=== PATIENT | female | born 1970 | race Caucasian/White ===

== ENCOUNTER → 2016-10-05 | Outpatient (CLI) | payer OTHER ==
[~2016-10-05] MED LIST: ASPI81TA60 PO; HYDR12.55 PO; INSUDET SC; JANU50TA8 PO; LISI40TAB PO; SIMV40TA2 PO; TRIL135C PO; VITMTA PO
[2016-10-05 10:15] LABS: CALCIUM LEVEL 9.1 MG/DL (8.5-10.1); CREATININE FOR GFR 1.29 MG/DL (0.55-1.02); GLOMERULAR FILTRATION RATE 47.4 (>58); POTASSIUM SERUM 4.7 MEQ/L (3.5-5.1)
== END | disposition home or self-care (01) ==
LOC: M LAB 09:26
PROVIDERS: ATTEND Physician Assistant Medical
DX: E11.65 Type 2 diabetes mellitus with hyperglycemia (principal); E78.5 Hyperlipidemia, unspecified; I10 Essential (primary) hypertension

== ENCOUNTER → 2017-04-27 | Outpatient (CLI) | payer OTHER ==
[~2017-04-27] MED LIST changes: -TRIL135C PO; +TRIL135C6 PO
[2017-04-27 10:42] LABS: BASO % 0.7 % (0.0-1.0); EOS # 0.4 K/mm3 (0.0-0.50); EOS % 6.6 % (0.0-3.0); LARGE UNSTAINED CELL # 0.1 K/mm3 (0.0-0.4); LARGE UNSTAINED CELL % 1.3 % (0.0-4.0); LYMPH # 1.6 K/mm3 (1.5-4.5); MEAN CORPUSCULAR HEMOGLOBIN 28.4 pg (27.0-33.0); MEAN CORPUSCULAR HGB CONC 32.6 g/dl (32.0-36.5); MEAN CORPUSCULAR VOLUME 87.1 fl (80.0-96.0); MONO # 0.2 K/mm3 (0.0-0.8); MONO % 3.4 % (0.0-5.0); NEUTROPHILS # 4.5 K/mm3 (1.8-7.7); PLATELET COUNT, AUTOMATED 314 k/mm3 (150-450); RED CELL DISTRIBUTION WIDTH 14.3 % (11.5-14.5); WHITE BLOOD COUNT 6.8 K/mm3 (4.0-10.0)
[2017-04-27 11:09] LABS: ALBUMIN 3.2 GM/DL (3.2-5.2); ALBUMIN/GLOBULIN RATIO 0.76 (1.00-1.93); ALKALINE PHOSPHATASE 52 U/L (45-117); ALT/SGPT 33 U/L (12-78); ANION GAP 9 MEQ/L (8-16); AST/SGOT 15 U/L (15-37); BILIRUBIN,TOTAL 0.3 MG/DL (0.2-1.0); BLOOD UREA NITROGEN 38 MG/DL (7-18); CALCIUM LEVEL 9.6 MG/DL (8.5-10.1); CARBON DIOXIDE LEVEL 24 MEQ/L (21-32); CHLORIDE LEVEL 102 MEQ/L (98-107); CHOLESTEROL LEVEL 245 MG/DL (<200); CREATININE FOR GFR 1.48 MG/DL (0.55-1.02); GLOMERULAR FILTRATION RATE 40.2 (>58); GLUCOSE, FASTING 312 MG/DL (70-105); SODIUM LEVEL 135 MEQ/L (136-145); TOTAL PROTEIN 7.4 GM/DL (6.4-8.2); TRIGLYCERIDES LEVEL 741 MG/DL (<150)
== END ==
LOC: M LAB 09:46
PROVIDERS: ATTEND Physician Assistant Medical
DX: E11.65 Type 2 diabetes mellitus with hyperglycemia (principal)

== ENCOUNTER → 2017-08-12 | Outpatient (CLI) | payer OTHER ==
[2017-08-12 09:52] LABS: CALCIUM LEVEL 9.2 MG/DL (8.5-10.1); CREATININE FOR GFR 1.3 MG/DL (0.55-1.02); GLOMERULAR FILTRATION RATE 46.7 (>58); POTASSIUM SERUM 4.6 MEQ/L (3.5-5.1)
== END ==
LOC: M LAB 08:54
PROVIDERS: ATTEND Physician Assistant Medical
DX: E11.65 Type 2 diabetes mellitus with hyperglycemia (principal)

== ENCOUNTER → 2017-08-16 | Outpatient (REF) | payer OTHER | LOC: M LAB REF 16:44 | PROVIDERS: ATTEND Nurse Practitioner Women's Health | DX: N39.41 Urge incontinence (principal) ==

== ENCOUNTER → 2017-09-17 | Outpatient (CLI) | payer OTHER ==
--- NOTE | 2017-09-17 10:53 | REPMRS ---
Patient History The patient states she had a clinical breast exam in 2016. Family history of breast cancer in paternal aunt at age 50 or over and ovarian cancer in maternal grandmother at age 48. Took hormonal contraceptives for 3 years. Digital Mammo Screening Bilat: September 17, 2017 - Exam #: [id number] Bilateral CC and MLO view(s) were taken. Technologist: Wanda Ryder, Technologist Prior study comparison: September 11, 2016, bilateral digital mammo screening bilat performed at [facility]. August 13, 2015, bilateral digital mammo screening bilat performed at [facility]. August 10, 2014, bilateral bilat screen digital mammo, performed at [facility] ([facility]). FINDINGS: The breast tissue is almost entirely fat. There has been no change in the appearance of the mammogram from the prior studies. There is no interval development of dominant mass, architectural distortion, or clustered microcalcification typical of malignancy. ASSESSMENT: BI-RADS/ACR category 1 mammogram. Negative. Recommendation Routine screening mammogram of both breasts in 1 year (for women over age 40). This patient's Lifetime Breast Cancer RIsk is estimated at 18.8 %. This mammogram was interpreted with the aid of an FDA-approved computer-aided dectection system. Electronically Signed By: Pedrito Molina MD 09/17/17 3193
== END ==
LOC: M RAD 08:45
PROVIDERS: ATTEND Nurse Practitioner Women's Health
DX: Z12.31 Encounter for screening mammogram for malignant neoplasm of breast (principal)

== ENCOUNTER 2018-02-10 18:19 | Emergency (ER) | payer OTHER ==
[2018-02-10] MEDS: CLINDAMYCIN 150 MG CAP PO (19:57)
== END 2018-02-10 20:00 | disposition home or self-care (01) ==
LOC: M ED 18:19
DX: L03.032 Cellulitis of left toe (principal); S90.112A Contusion of left great toe without damage to nail, initial encounter; X58.XXXA Exposure to other specified factors, initial encounter; Y92.89 Other specified places as the place of occurrence of the external cause; I10 Essential (primary) hypertension; E11.9 Type 2 diabetes mellitus without complications; E78.9 Disorder of lipoprotein metabolism, unspecified; Z79.899 Other long term (current) drug therapy; Z79.82 Long term (current) use of aspirin; Z79.4 Long term (current) use of insulin
CPT/HCPCS: 99283

== ENCOUNTER 2018-04-25 15:03 | Emergency (ER) | payer OTHER ==
[2018-04-25] MEDS: ADACEL/BOOSTRIX VACCINE (DIPHTH/PERTUSS/ACELL/TETANUS)0.5ML SYR (90715) IM (17:15)
== END 2018-04-25 17:34 | disposition home or self-care (01) ==
LOC: M ED 15:03
DX: S80.811A Abrasion, right lower leg, initial encounter (principal); L08.9 Local infection of the skin and subcutaneous tissue, unspecified; W55.03XA Scratched by cat, initial encounter; Y92.098 Other place in other non-institutional residence as the place of occurrence of the external cause; E11.9 Type 2 diabetes mellitus without complications; I10 Essential (primary) hypertension; E78.5 Hyperlipidemia, unspecified; Z79.82 Long term (current) use of aspirin; Z79.899 Other long term (current) drug therapy; Z79.4 Long term (current) use of insulin
CPT/HCPCS: 90715

== ENCOUNTER → 2018-05-03 | Outpatient (REF) | payer OTHER | LOC: M LAB REF 12:22 | DX: L03.115 Cellulitis of right lower limb (principal) ==

== ENCOUNTER → 2018-06-01 | Outpatient (CLI) | payer OTHER ==
[2018-06-01 11:08] LABS: ESTIMATED AVERAGE GLUCOSE 243 MG/DL (60-110); HEMOGLOBIN A1c 10.1 %
[2018-06-01 11:13] LABS: ANION GAP 11 MEQ/L (8-16); BLOOD UREA NITROGEN 29 MG/DL (7-18); CALCIUM LEVEL 9.2 MG/DL (8.5-10.1); CARBON DIOXIDE LEVEL 21 MEQ/L (21-32); CHLORIDE LEVEL 109 MEQ/L (98-107); CHOLESTEROL LEVEL 153 MG/DL (<200); CHOLESTEROL RISK RATIO 4.026 (<5); CREATININE FOR GFR 1.04 MG/DL (0.55-1.30); GLOMERULAR FILTRATION RATE > 60.0 (>58); GLUCOSE, FASTING 148 MG/DL (70-100); HDL CHOLESTEROL 38 MG/DL (>40); LDL CHOLESTEROL 61.2 MG/DL (<100); NON-HDL-C 115 MG/DL; POTASSIUM SERUM 4.5 MEQ/L (3.5-5.1); SODIUM LEVEL 141 MEQ/L (136-145); TRIGLYCERIDES LEVEL 269 MG/DL (<150)
[2018-06-01 11:22] LABS: CREATININE, URINE 76.7 MG/DL; MALB URINE SIEMENS 20.2 MG/L; MAU/CREAT RATIO 26.3 MCG/MG (0.0-30.0)
== END ==
LOC: M LAB 10:14
DX: E78.5 Hyperlipidemia, unspecified (principal); E11.65 Type 2 diabetes mellitus with hyperglycemia; N18.3 Chronic kidney disease, stage 3 (moderate)
CPT/HCPCS: 83036

== ENCOUNTER → 2018-09-21 | Outpatient (CLI) | payer OTHER ==
[~2018-09-21] MED LIST changes: +AUGM875T28 PO; +CLEO300C2 PO; +INSUHUMDS SC; +INVO100T PO; +OMEGA-3-ACID; +ROSU40TA3 PO
--- NOTE | 2018-09-21 10:52 | REPMRS ---
Patient History The patient states she had a clinical breast exam in 2017. Family history of breast cancer at age 50 or over in paternal aunt, ovarian cancer at age 48 in maternal grandmother. Took hormonal contraceptives for 3 years. Digital Mammo Screening Bilat: September 21, 2018 - Exam #: [id number] Bilateral CC and MLO view(s) were taken. Technologist: Wanda Ryder, Technologist Prior study comparison: September 17, 2017, bilateral digital mammo screening bilat performed at [facility]. September 11, 2016, bilateral digital mammo screening bilat performed at [facility]. August 13, 2015, bilateral digital mammo screening bilat performed at [facility]. FINDINGS: The breast tissue is almost entirely fat. There has been no change in the appearance of the mammogram from the prior studies. There is no interval development of dominant mass, architectural distortion, or clustered microcalcification typical of malignancy. Assessment: BI-RADS/ACR category 1 mammogram. Negative. Recommendation Routine screening mammogram of both breasts in 1 year (for women over age 40). This patient's Lifetime Breast Cancer RIsk is estimated at 18.5 %. This mammogram was interpreted with the aid of an FDA-approved computer-aided dectection system. Electronically Signed By: Pedrito Molina MD 09/21/18 0304
== END ==
LOC: M RAD 09:57
PROVIDERS: ATTEND Nurse Practitioner Women's Health
DX: Z12.31 Encounter for screening mammogram for malignant neoplasm of breast (principal); Z92.0 Personal history of contraception; Z80.41 Family history of malignant neoplasm of ovary

== ENCOUNTER 2019-01-13 12:58 | Emergency (ER) | payer OTHER ==
[~2019-01-13] VITALS: Ht 170.2 cm; Wt 121.6 kg
[~2019-01-13 12:58] MED LIST changes: +LISI40TA52 PO; -LISI40TAB PO
[2019-01-13 12:59] VITALS: BP 116/71
== END 2019-01-13 13:41 | disposition home or self-care (01) ==
LOC: M ED 12:58
DX: J02.9 Acute pharyngitis, unspecified (principal); I10 Essential (primary) hypertension; E11.9 Type 2 diabetes mellitus without complications; E78.00 Pure hypercholesterolemia, unspecified; Z79.899 Other long term (current) drug therapy; Z79.82 Long term (current) use of aspirin; Z79.4 Long term (current) use of insulin

== ENCOUNTER → 2019-02-06 | Outpatient (CLI) | payer OTHER ==
--- NOTE | 2019-02-07 04:22 | REP ---
Clinical: Chronic medical renal disease stage III. Technique: Real time mitchell scale ultrasound examination using curved array transducer. Findings: The kidneys are normal in reniform shape and parenchymal echo texture with increased central sinus fat and cortical thinning consistent with chronic medical renal disease. No hydronephrosis, obvious nephrolithiasis, cystic or renal mass lesion. Right kidney measures 11.5 x 6.6 x 6.0 cm. Left kidney measures 13.6 x 5.3 x 6.7 cm. Bladder is empty. Impression: Findings consistent with chronic medical renal disease. Electronically Signed by Alfredo Fisher MD 02/07/2019 04:14 A
== END ==
LOC: M RAD 10:29
PROVIDERS: ATTEND Internal Medicine Nephrology
DX: N18.3 Chronic kidney disease, stage 3 (moderate) (principal); E11.22 Type 2 diabetes mellitus with diabetic chronic kidney disease

== ENCOUNTER → 2019-03-29 | Outpatient (REF) | payer OTHER ==
[~2019-03-29] MED LIST changes: -ROSU40TA3 PO; +ROSU40TA4 PO
[2019-03-29 13:38] LABS: PERCENT SATURATION 16.2 % (13.2-45.0)
== END ==
LOC: M LAB REF 12:51
PROVIDERS: ATTEND Internal Medicine Nephrology
DX: N18.3 Chronic kidney disease, stage 3 (moderate) (principal); D63.1 Anemia in chronic kidney disease

== ENCOUNTER → 2019-06-22 | Outpatient (CLI) | payer OTHER ==
[~2019-06-22] MED LIST changes: -SIMV40TA2 PO; +SIMV40TA20 PO
[2019-06-22 11:03] LABS: ALBUMIN 3.6 GM/DL (3.2-5.2); BILIRUBIN,TOTAL 0.4 MG/DL (0.2-1.0); CALCIUM LEVEL 9.5 MG/DL (8.5-10.1); CHOLESTEROL RISK RATIO 3.487 (<5); CREATININE FOR GFR 1.29 MG/DL (0.55-1.30); GLOMERULAR FILTRATION RATE 46.8 (>58); POTASSIUM SERUM 5.3 MEQ/L (3.5-5.1); TOTAL PROTEIN 7.1 GM/DL (6.4-8.2)
[2019-06-22 13:02] LABS: HEMOGLOBIN A1c 8.4 %
== END ==
LOC: M LAB 08:31
PROVIDERS: ATTEND Physician Assistant Medical
DX: E11.69 Type 2 diabetes mellitus with other specified complication (principal)

== ENCOUNTER → 2019-09-15 | Outpatient (CLI) | payer OTHER ==
[2019-09-15 11:09] LABS: ALBUMIN 3.8 GM/DL (3.2-5.2); BILIRUBIN,TOTAL 0.4 MG/DL (0.2-1.0); CALCIUM LEVEL 9.6 MG/DL (8.5-10.1); CHOLESTEROL RISK RATIO 3.56 (<5); CREATININE FOR GFR 1.17 MG/DL (0.55-1.30); GLOMERULAR FILTRATION RATE 52.3 (>58); POTASSIUM SERUM 4.7 MEQ/L (3.5-5.1); TOTAL PROTEIN 7.4 GM/DL (6.4-8.2)
[2019-09-15 11:14] LABS: HEMOGLOBIN A1c 8.3 %
== END ==
LOC: M LAB 09:26
PROVIDERS: ATTEND Physician Assistant
DX: E11.69 Type 2 diabetes mellitus with other specified complication (principal)

== ENCOUNTER → 2019-09-22 | Outpatient (CLI) | payer OTHER ==
--- NOTE | 2019-09-22 11:38 | REPMRS ---
Patient History The patient states she has not had a clinical breast exam in over a year. Family history of breast cancer at age 50 or over in paternal aunt, ovarian cancer at age 48 in maternal grandmother. Took hormonal contraceptives for 3 years. 3D TOMOSYNTHESIS WAS PERFORMED. [facility] for [facility]%. Digital Mammo Screening Bilat: September 22, 2019 - Exam #: [id number] Bilateral CC and MLO view(s) were taken. Technologist: Wanda Ryder, Technologist Prior study comparison: September 21, 2018, bilateral digital mammo screening bilat performed at [facility]. September 17, 2017, bilateral digital mammo screening bilat performed at [facility]. FINDINGS: There are scattered fibroglandular densities. There has been no change in the appearance of the mammogram from the prior studies. There is a mild amount of residual fibroglandular tissue which is fairly symmetric. There is no interval development of dominant mass, architectural distortion, or clustered microcalcification suggestive of malignancy. Assessment: BI-RADS/ACR category 1 mammogram. Negative Mammogram. Recommendation Routine screening mammogram in 1 year (for women over age 40). This mammogram was interpreted with the aid of an FDA-approved computer-aided dectection system. Electronically Signed By: Arsenio Alvarado MD 09/22/19 [id number]
== END ==
LOC: M RAD 10:24
PROVIDERS: ATTEND Nurse Practitioner Women's Health
DX: Z12.31 Encounter for screening mammogram for malignant neoplasm of breast (principal)

== ENCOUNTER 2019-12-07 15:20 | Emergency (ER) | payer OTHER ==
[~2019-12-07] VITALS: Ht 170.2 cm; Wt 126.3 kg
[2019-12-07] MEDS ORDERED: MAGN1CAP PO (15:41)
[2019-12-07] MEDS ORDERED: NS 1,000 ML IV ONE (15:45)
[2019-12-07 16:02] LABS: VENOUS BASE EXCESS -1.2 (-2.0-2.0); VENOUS HCO3 24.2 MEQ/L (23.0-27.0); VENOUS O2 SATURATION 88.5 % (60.0-80.0); VENOUS PARTIAL PRESSURE CO2 43.5 mmHg (38.0-50.0); VENOUS PARTIAL PRESSURE O2 58.8 mmHg (30.0-50.0); VENOUS PH 7.364 UNITS (7.330-7.430); VENOUS STANDARD HCO3 23.3 MEQ/L; VENOUS TOTAL CO2 25.6 MEQ/L (24.0-28.0)
[2019-12-07 16:09] LABS: BASO % 0.4 % (0.0-1.0); EOS # 0.7 10^3/uL (0.0-0.5); EOS % 8.1 % (0.0-3.0); HEMATOCRIT 36.5 % (36.0-47.0); HEMOGLOBIN 11.5 g/dl (12.0-15.5); MEAN CORPUSCULAR HEMOGLOBIN 27.7 pg (27.0-33.0); MEAN CORPUSCULAR HGB CONC 31.5 g/dl (32.0-36.5); MONO # 0.3 10^3/uL (0.0-0.8); MONO % 3.1 % (0.0-5.0); NEUTROPHILS # 5.5 10^3/uL (1.5-8.5); NEUTROPHILS % 65.2 % (36.0-66.0); PLATELET COUNT, AUTOMATED 278 10^3/uL (150-450); RED BLOOD COUNT 4.15 10^6/uL (4.00-5.40); WHITE BLOOD COUNT 8.5 10^3/uL (4.0-10.0)
[2019-12-07 16:43] LABS: HEMOGLOBIN A1c 8.6 %
[2019-12-07 20:28] VITALS: BP 132/74
== END 2019-12-07 20:42 | disposition home or self-care (01) ==
LOC: M ED 15:20
DX: T38.3X1A Poisoning by insulin and oral hypoglycemic [antidiabetic] drugs, accidental (unintentional), initial encounter (principal); E11.9 Type 2 diabetes mellitus without complications; I10 Essential (primary) hypertension; I51.9 Heart disease, unspecified; Z79.82 Long term (current) use of aspirin; Z79.4 Long term (current) use of insulin; Z79.899 Other long term (current) drug therapy

== ENCOUNTER → 2019-12-26 | Outpatient (CLI) | payer OTHER ==
[~2019-12-26] MED LIST changes: +MAGN1CAP PO
[2019-12-26 09:55] LABS: HEMOGLOBIN A1c 8.2 %
[2019-12-26 10:05] LABS: CALCIUM LEVEL 9.3 MG/DL (8.5-10.1); CREATININE FOR GFR 1.11 MG/DL (0.55-1.30); GLOMERULAR FILTRATION RATE 55.6 (>58); POTASSIUM SERUM 4.7 MEQ/L (3.5-5.1)
[2019-12-26 10:09] LABS: MAU/CREAT RATIO 225.9 MCG/MG (0.0-30.0)
== END ==
LOC: M LAB 09:02
PROVIDERS: ATTEND Physician Assistant
DX: E11.9 Type 2 diabetes mellitus without complications (principal)

== ENCOUNTER → 2020-05-13 | Outpatient (CLI) | payer OTHER ==
[2020-07-11 16:16] LABS: BASO # 0.1 10^3/uL (0.0-0.2); BASO % 0.6 % (0.0-1.0); EOS # 0.7 10^3/uL (0.0-0.5); EOS % 8.2 % (0.0-3.0); HEMATOCRIT 33.4 % (36.0-47.0); HEMOGLOBIN 10.3 g/dl (12.0-15.5); LYMPH # 1.9 10^3/uL (1.5-5.0); LYMPH % 24.1 % (24.0-44.0); MEAN CORPUSCULAR HEMOGLOBIN 26.8 pg (27.0-33.0); MEAN CORPUSCULAR HGB CONC 30.8 g/dl (32.0-36.5); MEAN CORPUSCULAR VOLUME 86.8 fl (80.0-96.0); MONO # 0.5 10^3/uL (0.0-0.8); MONO % 6.2 % (0.0-5.0); NEUTROPHILS # 4.8 10^3/uL (1.5-8.5); NEUTROPHILS % 60.5 % (36.0-66.0); PLATELET COUNT, AUTOMATED 287 10^3/uL (150-450); RED BLOOD COUNT 3.85 10^6/uL (4.00-5.40); WHITE BLOOD COUNT 7.9 10^3/uL (4.0-10.0)
[2020-07-15 09:31] LABS: HEMOGLOBIN A1c 8.4 %
[2020-07-15 09:32] LABS: BILIRUBIN,TOTAL 0.3 MG/DL (0.2-1.0); CALCIUM LEVEL 9.2 MG/DL (8.5-10.1); CHOLESTEROL RISK RATIO 3.891 (<5); CREATININE FOR GFR 1.27 MG/DL (0.55-1.30); GLOMERULAR FILTRATION RATE 47.4 (>51); LDL CHOLESTEROL 47.2 MG/DL (<100); POTASSIUM SERUM 4.6 MEQ/L (3.5-5.1)
[2020-07-15 09:33] LABS: ALBUMIN 3.4 GM/DL (3.2-5.2); TOTAL PROTEIN 6.9 GM/DL (6.4-8.2)
== END ==
LOC: M LAB 09:10
PROVIDERS: ATTEND Family Medicine
DX: E78.5 Hyperlipidemia, unspecified (principal); E11.22 Type 2 diabetes mellitus with diabetic chronic kidney disease; N18.3 Chronic kidney disease, stage 3 (moderate)

== ENCOUNTER → 2020-10-01 | Outpatient (CLI) | payer OTHER ==
--- NOTE | 2020-10-01 09:39 | REPMRS ---
Patient History The patient states she had a clinical breast exam in 08/2020. Family history of breast cancer at age 50 or over in paternal aunt, ovarian cancer at age 48 in maternal grandmother. Took hormonal contraceptives for 3 years. 3D TOMOSYNTHESIS WAS PERFORMED. The Hubert Gillespie lifetime risk for breast cancer is 17.9%. Volpara breast density a. Digital Woman Screen Mammo: October 01, 2020 - Exam #: [id number] Bilateral CC and MLO view(s) were taken. Technologist: Miguelnia Iqbal, Technologist Prior study comparison: September 22, 2019, bilateral digital mammo screening bilat, performed at [facility]. September 21, 2018, bilateral digital mammo screening bilat, performed at [facility]. FINDINGS: There are scattered fibroglandular densities. There has been no change in the appearance of the mammogram from the prior studies. There is a mild amount of residual fibroglandular tissue which is fairly symmetric. There is no interval development of dominant mass, architectural distortion, or clustered microcalcification suggestive of malignancy. Assessment: BI-RADS/ACR category 1 mammogram. Negative Mammogram. Recommendation Routine screening mammogram in 1 year (for women over age 40). This mammogram was interpreted with the aid of an FDA-approved computer-aided dectection system. Electronically Signed By: Arsenio Alvarado MD 10/01/20 0938
== END ==
LOC: M WHC 07:54
PROVIDERS: ATTEND Obstetrics & Gynecology
DX: Z12.31 Encounter for screening mammogram for malignant neoplasm of breast (principal); Z92.0 Personal history of contraception

== ENCOUNTER → 2020-11-18 | Outpatient (CLI) | payer OTHER ==
[2020-11-18 11:40] LABS: HEMOGLOBIN A1c 8.7 %
== END ==
LOC: M LAB 10:20
PROVIDERS: ATTEND Nurse Practitioner Family
DX: E11.69 Type 2 diabetes mellitus with other specified complication (principal)

== ENCOUNTER → 2020-12-26 | Outpatient (REF) | payer OTHER ==
[2020-12-26 18:08] LABS: PERCENT SATURATION 13.7 % (13.2-45.0)
== END ==
LOC: M LAB REF 16:40
PROVIDERS: ATTEND Internal Medicine Nephrology
DX: N18.30 Chronic kidney disease, stage 3 unspecified (principal); D63.1 Anemia in chronic kidney disease

== ENCOUNTER 2021-01-14 13:35 | Outpatient (CLI) | payer OTHER ==
[~2021-01-14] VITALS: Ht 170.2 cm; Wt 124.5 kg
[~2021-01-14 13:35] MED LIST changes: +ALBUTEROL SULFATE 2.5 MG/0.5 ML INH NEB SOLN INH PRN; +EPINEPHrine INJ 1 MG/ML 1ML AMP IM PRN; +diphenhydrAMINE 50MG/ML VIAL (J1200) IV PRN; +methylPREDNISolone 125MG 2ML VIAL IV PRN
[2021-01-14 13:40] VITALS: BP 184/86
[2021-01-14] MEDS ORDERED: FERRIC CARBOXYMALTOSE INJ 750 MG, VIAL MATE ADAPTER 1 EACH in NS 250 ML IV ONE (14:15)
[2021-01-14] MEDS ORDERED: NS 1,000 ML IV SCH (14:15)
[2021-01-14 15:31] VITALS: BP 165/85
[2021-01-14 16:27] VITALS: BP 135/86
[2021-01-14 16:59] VITALS: BP 136/93
[2021-01-14 17:20] VITALS: BP 54/84
== END 2021-01-14 17:25 | disposition home or self-care (01) ==
LOC: M INFU 13:35
PROVIDERS: ATTEND Internal Medicine Nephrology
DX: D50.9 Iron deficiency anemia, unspecified (principal)
CPT/HCPCS: 96365; 96366; J1439

== ENCOUNTER 2021-01-21 13:23 | Outpatient (CLI) | payer OTHER ==
[2021-01-21 13:25] VITALS: BP 170/89
[2021-01-21] MEDS ORDERED: FERRIC CARBOXYMALTOSE INJ 750 MG, VIAL MATE ADAPTER 1 EACH in NS 250 ML IV ONE (13:30)
[2021-01-21] MEDS ORDERED: NS 1,000 ML IV SCH (13:30)
[2021-01-21 15:00] VITALS: BP 132/69
== END 2021-01-21 15:00 | disposition home or self-care (01) ==
LOC: M INFU 13:23
PROVIDERS: ATTEND Internal Medicine Nephrology
DX: D50.9 Iron deficiency anemia, unspecified (principal)
CPT/HCPCS: 96365; J1439

== ENCOUNTER → 2021-05-22 | Outpatient (CLI) | payer OTHER ==
[~2021-05-22] MED LIST changes: -ALBUTEROL SULFATE 2.5 MG/0.5 ML INH NEB SOLN INH PRN; -EPINEPHrine INJ 1 MG/ML 1ML AMP IM PRN; -diphenhydrAMINE 50MG/ML VIAL (J1200) IV PRN; -methylPREDNISolone 125MG 2ML VIAL IV PRN
[2021-05-22 15:47] LABS: HEMOGLOBIN A1c 7.2 %
== END ==
LOC: M LAB 09:55
PROVIDERS: ATTEND Nurse Practitioner Family
DX: E11.69 Type 2 diabetes mellitus with other specified complication (principal)

== ENCOUNTER → 2021-07-03 | Outpatient (REF) | payer OTHER | LOC: M LAB REF 12:53 | PROVIDERS: ATTEND Internal Medicine Nephrology | DX: E83.42 Hypomagnesemia (principal) ==

== ENCOUNTER → 2021-08-01 | Outpatient (CLI) | payer OTHER ==
[~2021-08-01] MED LIST changes: +GOOD81CH2 PO; +HYDR12CA PO; +LISI20TA33 PO; +OMEG100011 PO; +TRUL0.5I SC; +VITA1CAP4 PO
== END ==
LOC: M LABSMTC 09:48
PROVIDERS: ATTEND Anesthesiology
DX: Z01.818 Encounter for other preprocedural examination (principal); Z11.52 Encounter for screening for COVID-19

== ENCOUNTER 2021-08-06 06:53 | Day surgery (SDC) | payer OTHER ==
[~2021-08-06] VITALS: Ht 170.2 cm; Wt 132.4 kg
[~2021-08-06 06:53] MED LIST changes: +NS 1,000 ML IV ONE
--- OUTSIDE RECORDS SUMMARY | 2021-08-06 06:57 | CCD | Continuity of Care Document ---
Author Author Nishi RAMIREZ Organization Unknown Address [address], [address] [place] [address] Phone [phone] Care Team Providers Care Health Administration Teacher Name Role Phone Mary Ann Gracia N.P. AUTM [phone] Problems Active Problems Provider Date Essential hypertension LUIS Lu Onset: 06/09/2021 Social History Type Date Description Comments Sex Unknown ETOH Use 1 A Month Recreational Drug Use Denies Drug Use Tobacco Use Start: Unknown Denies Smoking Allergies, Adverse Reactions, Alerts Active Allergies Criticality Reaction | Severity Comments Date Seasonal Unable to assess criticality 06/09/2021 Medications Active Medications SIG Qnty Indications Ordering Provide r Date Levemir 100Unit/ML Solution 130 Units 2 Times A Day Unknown Rosuvastatin Calcium 40mg Tablets Take One Tablet By Mouth Every Day For Cholesterol Unknow n Humalog 100Unit/ML Solution Inject 14 Units Daily Before Meals as Directed Max Of 42 Units Daily Unknown Invokana 100mg Tablets 1 qd Unknown Janumet 50-1000mg Tablets 1 tab by mouth twice a day Unknown Lisinopril 20mg Tablets 1 qd Unknown Hydrochlorothiazide 12.5mg Capsules 1 qd Unknown Aspirin 81mg Tablets DR Parag villar day Unknown Multivitamin Tablets 1 by mouth every day Unknown Magnesium Gluconate 250mg Tablets 2 tab by mouth twice a day Unknown Vitamin D3 10mcg (400 Unit) Capsul es 1 every day Unknown Immunizations Description No Information Available Vital Signs Date Vital Result Comment 06/09/2021 11:37am BP Systolic 114 mmHg BP Diastolic 73 mmHg Heart Rate 93 /min Body Temperature 98.7 F Height 67 inches 5'7" Weight 287.25 lb BMI (Body Mass Index) 45.0 kg/m2 [place] Body Weight 135 lb Weight 130.297 kg BSA (Body Surface Area) 2.36 m2 Results Description No Information Available Procedures Date Code Description Status 06/09/2021 31708 Office/Outpatient New Low MDM 30 -44 Minutes Completed Medical Devices Description No Information Available Encounters Type Date Location Provider Dx Diagnosis Office Visit 06/09/2021 11:30a [facility] LUIS Boyer Z12.11 Encounter for screening for malignant ne oplasm of colon Assessments Date Code Description Provider 06/09/2021 Z12.11 Encounter for screening for renny gnant neoplasm of colon LUIS Lu Plan of Treatment Future Appointment(s):* 08/18/2021 9:45 am - LUIS Lu at [facility] * 08/06/2021 8:15 am - Arsenio Tesfaye DO at [facility] 06/09/2021 - LUIS Lu* Z12.11 Encounter for screening for malignant neoplasm of colon Functional Status Description No Information Available Mental Status Description No Information Available Referrals Refer to Reason for Referral Status Appt Date Arsenio Tesfaye D.O. COLONOSCOPY Scheduled 06/09/[address] [place] [id number] [phone]
--- OUTSIDE RECORDS SUMMARY | 2021-08-06 06:57 | CCD | Continuity of Care Document ---
Author Author Nishi GRACIA [employer] Organization Unknown Address [address] [place] [address] Phone [phone] Care Team Providers Care College Sports Assistant Name Role Phone [facility] - Orthopaedic Surgery AUTM [phone] Kapil CORLEY, Sujata AUTM [phone] Malik Shen D.O. AUTM [phone] [facility] Ophthalmic AUTM [phone] Problems Active Problems Provider Date Hyperlipidemia Mary Ann Gracia FNP Onset: 05/28/2021 Essential hypertension Mary Ann Gracia FNP Onset: Type 2 diabetes mellitus Mary Ann Gracia [employer] Onset: 021 Chronic kidney disease stage 3 Mary Ann Gracia [employer] Onset: 0 05/28/2021 Anemia of chronic renal failure Mary Ann Gracia [employer] Onset: 05/28/2021 Social History Type Date Description Comments Sex Unknown Tobacco Use Start: Unknown Never Used Smokeless Tobacco ETOH Use Denies alcohol use Tobacco Use Start: Unknown Patient has never smoked Recreational Drug Use Denies Drug Use Smoking Status Reviewed: 05/28/21 Patient has never smoked Exercise Type/Frequency Exercises sporadically Tattoo/Piercing Tattoo right leg Tattoo/Piercing Pierced ears Sun Exposure Minimum amount of sun exposure Sun Exposure Uses sunscreen Seat Belt/Car Seat Always uses seat belt Bike Helmet Never Does not bike ri de Guns in Home Yes, Locked Up Smoke Alarms Yes Smoke Alarms Carbon Monoxide Detector: Yes Allergies, Adverse Reactions, Alerts Active Allergies Criticality Reaction | Severity Comments Date NKDA Unable to assess criticality 02/22/2014 seasonal Unable to assess criticality 02/22/2014 Medications Active Medications SIG Qnty Indications Ordering Provide r Date B-D Insulin Syringe Ultrafine II/0.3ML/3 1G X /16" 31G X /16" 0.3 ML Misc use to inject insulin] sq [five times a day 500unPeg Zhang M.D. 10/03/2020 Olopatadine HCL 0.1% Solution 1 drop both eyes twice a day 15ml H10.13 Mary Ann Gracia FNP 05/29/2020 Trulicity 1.5mg/0.5ML Solution Pen -Inject inject 1.5mg once a week 6ml E11.65 Mary Ann Gracia FNP Fluconazole 150mg Tablets take 1 tablet by mouth once - may repeat if needed in 3 days 14tabs Mary Ann Velasquez FNP 01/26/2018 BD Insulin Syr 1ml use to inject insulin' sq 'five times a day 400unPeg Zhang M.D. 0 11/03/2017 Voltaren 1% Gel apply 2 grams up to 4 times a day as needed to right knee for pain 100gm M25.561 Mary Ann Velasquez FNP 06/03/2017 Rosuvastatin Calcium 40mg Tablets take 1 tablet by mouth every day for cholesterol 90tabs E78.5 Mary Ann Braga ch, FNP 06/03/2017 Invokana 100mg Tablets take 1 tablet by mouth before first meal every morning 90tabs Mary Ann Gracia FNP 11/25/2016 Freestyle Lite Glucometer Machine to use to test fsbs as directed 1unPeg Zhang M.D . 08/27/2015 Freestyle Lite Test Strips Strips to test fsbs 4 times daily or as directed 300unDrake Zhang M.D. 08/27/2015 Freestyle Lite Lancets Misc to test fsbs 4 times daily or as needed 120unPeg Zhang M .D. 08/27/2015 Insulin Syringe/Needle 28G X 1/2" 1 ML Misc to use to inject insulin sc five times a day 400units Peg Coleman M.D. 03/27/2014 Tramadol Hydrochloride/Acetaminophen 37.5-325mg Tablets 1-2 tab by mouth every 6 hours as needed for pain 30tabs Mary Ann Gracia [facility] 02/22/2014 Nystatin 466349Grqg/GM Powder apply to affected area twice daily as needed 120g B37.[address] [facility] 02/22/2014 Aspir-[address] 1 by mouth every day 100tabs Unknown Multivitamin Adult Tablets 1 tab po daily Unknown Humalog 100Unit/ML Solution inject 14 units daily before meals as directed 20ml Dinh Gracia [facility] Lisinopril 20mg Tablets take 1 tablet by mouth every morning for blood pressure 90tabs Mary Ann Gracia [facility] Hydrochlorothiazide 12.5mg Capsule s take 1 capsule by mouth daily 90caps Mary Ann Gracia [facility] Jzamo-7-Tieu Ethyl Esters 1gm Caps ules take 2 capsules by mouth twice a day 360caps Dinh Gracia [facility] Janumet 50-1000mg Tablets take 1 tablet by mouth twice a day 180tabs Mary Ann Gracia [facility] 00 Levemir 100Unit/ML Solution inject 130 units subcutaneously twice a day for diabetes 30ml Pl Mary Ann salinas [facility] Magnesium Oxide 500mg Tablets 2 by mouth every day Unknown History Medications Mupirocin 2% Ointment apply to open areas twice a day until healed 22gm R23.8 Kim Anne PA 01/02/2021 - 05/28/2021 Immunizations CPT Code Status Date Vaccine Lot # 11578 Given 06/28/2020 Influenza Virus Vaccine, Quadrivalent,age 3 and up,multidose vial [id number] 28695 Given 07/31/2019 Influenza Virus Vaccine, Quadrivalent,age 3 and up,multidose vial [id number] 76666 Given 06/08/2018 Influenza Virus Vaccine, Quadrivalent,age 3 and up,multidose vial [id number] 41924 Given 2018 Adacel 11 Yrs or older 97803 Given 07/29/2017 Influenza Virus Vaccine, Quadrivalent,age 3 and up,multidose vial [id number] 37861 Given 06/30/2016 Influenza Vaccination [id number] 54994 Given 07/08/2015 Influenza Vaccination [id number] 50159 Given 07/12/2014 Influenza Vaccination [id number] Vital Signs Date Vital Result Comment 05/28/2021 9:31am BP Systolic 129 mmHg BP Diastolic 87 mmHg Heart Rate 99 /min Body Temperature 97.0 F Respiratory Rate 17 /min Height 67.0 inches 5'7" Weight 282.12 lb O2 % BldC Oximetry 98 % Peak Expiratory Flow Rate 377 Estimated Peak Flow Rate [place] Body Weight 135 lb BMI (Body Mass Index) 44.2 kg/m2 11/19/2020 11:09am BP Systolic 149 mmHg BP Diastolic 107 mmHg BP Systolic Recheck 142 mmHg BP Diastolic Recheck 104 mmHg Heart Rate 108 /min Body Temperature 98.8 F Respiratory Rate 18 /min Height 67.0 inches 5'7" Weight 272.12 lb O2 % BldC Oximetry 98 % Peak Expiratory Flow Rate 379 Estimated Peak Flow Rate [place] Body Weight 135 lb BMI (Body Mass Index) 42.6 kg/m2 Results Test Acquired Date Facility Test Result H/L Range Note Hemoglobin A1c 05/22/2021 [facility] nter [phone] Hemoglobin A1c 7.2 % Normal 1 Estimated Average Glucose 160 mg/dL High 60-110 1 REFERENCE RANGES: <=5.6% NORMAL 5.7-6.4% SUGGESTS IMPAIRED GLUCOSE META BOLISM/PREDIABETIC >= 6.5% ABNORMAL Procedures Date Code Description Status 05/28/2021 42641 Preventive Medicine 40/64 Years, Est. Completed 05/28/2021 86817 Office/Outpatient Established Mo d MDM 30-39 Min Completed 05/28/2021 [id number] Diabetic Foot Exam Completed 01/02/2021 99648 Office/Outpatient Established Lo w MDM 20-29 Min Completed 12/30/2020 31524 Office/Outpatient Established Lo w MDM 20-29 Min Completed 08/2020 [id number] Mammogram Completed Medical Devices Description No Information Available Encounters Type Date Location Provider Dx Diagnosis Office Visit 05/28/2021 9:45a Main Office Mary Ann Gracia, [employer] Z00.0 0 Encntr for general adult medical exam w/o abnormal findings E11.69 Type 2 diabetes mellitus wit h other specified complication E78.5 Hyperlipidemia, unspecified I10 Essential (primary) hyperten brenda N18.30 Chronic kidney disease, stag e 3 unspecified D63.1 Anemia in chronic kidney dis ease M54.31 Sciatica, right side E66.01 Morbid (severe) obesity due to excess calories Z68.41 Body mass index [BMI] 40.0-4 4.9, adult Office Visit 01/02/2021 9:00a Main Office Kim Anne PA R23.8 Other skin changes Office Visit 12/30/2020 3:15p Main Office Kim Anne PA D50.9 Iron deficiency anemia, unspecified N18.30 Chronic kidney disease, stag e 3 unspecified Assessments Date Code Description Provider 05/28/2021 Z00.00 Encounter for genera l adult medical examination without abnormal findings Mary Ann Gracia, [facility] 05/28/2021 E11.69 Type 2 diabetes mellitus with ot her specified complication Mary Ann Gracia, [facility] 05/28/2021 E78.5 Hyperlipidemia, unspecified Ples Mary Ann delong, [facility] 05/28/2021 I10 Essential (primary) hypertension Mary Ann Gracia, [facility] 05/28/2021 N18.30 Chronic kidney disease, stage 3 unspecified Mary Ann Gracia, [facility] 05/28/2021 D63.1 Anemia in chronic kidney disease Mary Ann Gracia, [facility] 05/28/2021 M54.31 Sciatica, right side Dinh Gracia, [facility] 05/28/2021 E66.01 Morbid (severe) obesity due to e xcess calories Mary Ann Gracia, [facility] 05/28/2021 Z68.41 Body mass index [BMI] 40.0-44.9, adult Mary Ann Gracia, [employer] 01/02/2021 R23.8 Blister Rhianna Anne cia, PA 12/30/2020 D50.9 Iron deficiency anemia Kim Boone PA 12/30/2020 N18.30 Chronic kidney disease stage 3 P Kim banuelos PA Plan of Treatment Future Appointment(s):* 09/29/2021 8:45 am - Mary Ann Gracia FNP at Main Office 05/28/2021 - Mary Ann Gracia FNP* Z00.00 Encounter for general adult medical examination without abnormal findings* Comments:* Health maintenance up to date. Overall doing well. THEODORE/PHQ 9/CAGE questionnaire reviewed. Discussed healthy lifestyle choices. BMI out of range. Discussed methods of improving nutrition and increasing exercise. * E11.69 Type 2 diabetes mellitus with other specified complication* New Labs:* Hemoglobin A1c, Scheduled: 09/29/21 * Comprehensive Metabolic Profil, Scheduled: 09/29/21 * Lipid Panel, Scheduled: 09/29/21 * Microalbumin Random, Scheduled: 09/29/21 * Comments:* A1C improved significantly to 7.2, continue current medications, continue working on diet and exercise. Recheck A1C in 4 months * Follow up:* 4 months with labs * E78.5 Hyperlipidemia, unspecified* Comments:* continue statin * I10 Essential (primary) hypertension* Comments:* controlled, continue current medications * N18.30 Chronic kidney disease, stage 3 unspecified* Comments:* follows with nephrology * D63.1 Anemia in chronic kidney disease* Comments:* following with nephrology * M54.31 Sciatica, right side* New Orders:* PT Order, Scheduled: 05/28/21 * Comments:* continue tylenol and stretching, refer to PT * E66.01 Morbid (severe) obesity due to excess calories * Z68.41 Body mass index [BMI] 40.0-44.9, adult* Follow up:* . * Recommendations:* increase duration, intensity or frequency of exercise, smaller portions, healthy food choices Goals 05/28/2021 - Mary Ann Gracia FNP* E66.01 Morbid (severe) obesity due to excess calories* Focus on portion control and a balanced diet. Work to improve exercise and aim for 30 minutes of moderate intensity exercise 5 days a week. 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
--- OUTSIDE RECORDS SUMMARY | 2021-08-06 06:57 | CCD | Continuity of Care Document ---
Author Author Nishi GRACIA BENCH LAY OUT TECHNICIAN Organization Unknown Address [address] [place] [address] Phone [phone] Care Team Providers Care Celery Stripper Name Role Phone [facility] - Orth[facility]edic Surgery AUTM [phone] Kapil CORLEY, Sujata AUTM [phone] Malik Shen D.O. AUTM [phone] [facility] - [facility]mic AUTM [phone] [facility] - Surgery AUTM [phone] Problems Active Problems Provider Date Hyperlipidemia Mary Ann Gracia FNP Onset: 05/28/2021 Essential hypertension Mary Ann Gracia FNP Onset: Type 2 diabetes mellitus Mary Ann Gracia FNP Onset: 021 Chronic kidney disease stage 3 Mary Ann Gracia FNP Onset: 0 05/28/2021 Anemia of chronic renal failure Mary Ann Gracia FNP Onset: 05/28/2021 Social History Type Date Description [...] Yes Smoke Alarms Carbon Monoxide Detector: Yes Allergies and adverse reactions Active Allergies Criticality Reaction | Severity Comments Date NKDA Unable to assess criticality 02/22/2014 seasonal Unable to assess criticality 02/22/2014 Medications Active Medications SIG Qnty Indications Ordering Provide r Date B-D Insulin Syringe Ultrafine II/0.3ML/3 1G X 5/16" 31G X 5/16" 0.3 ML Misc use to inject insulin] [...] as needed for pain 30tabs Mary Ann Gracia, [facility] 02/22/2014 Nystatin 369464Gvcr/GM Powder apply to affected area twice daily as needed 120g B37.2 Zbigniew Gracia [facility] 02/22/2014 Aspir-[address] 1 by mouth every day 100tabs Unknown Multivitamin Adult Tablets 1 tab po daily Unknown Humalog 100Unit/ML Solution inject 14 units daily before meals as directed 20ml Dinh Gracia [facility] Lisinopril 20mg Tablets take 1 tablet by mouth every morning for blood pressure 90tabs Mary Ann Gracia [facility] Hydrochlorothiazide 12.5mg Capsule s take 1 capsule by mouth daily 90caps Mary Ann Gracia [facility] Wzyud-8-Mnnz Ethyl Esters 1gm Caps ules take 2 capsules by mouth twice a day 360caps Dinh Gracia [facility] Janumet 50-1000mg Tablets take 1 tablet by mouth twice a day 180tabs Mary Ann Gracia [facility] 00 Levemir 100Unit/ML Solution inject 130 units subcutaneously twice a day for diabetes 30ml Mary Ann Sheppard [facility] Magnesium Oxide 500mg Tablets 2 by mouth every day Unknown Immunizations CPT Code Status Date Vaccine Lot # 62030 Given 07/15/2021 Influenza Virus Vaccine, Nathanael drivalent,multidose vial [id number] 91008 Given 06/28/2020 Influenza Virus Vaccine, Nathanael drivalent,multidose vial [id number] 37599 Given 07/31/2019 Influenza Virus Vaccine, Nathanael drivalent,multidose vial [id number] 94625 Given 06/08/2018 Influenza Virus Vaccine, Nathanael drivalent,multidose vial [id number] 54409 Given 2018 Adacel 11 Yrs or older 87804 Given 07/29/2017 Influenza Virus Vaccine, Nathanael drivalent,multidose vial [id number] 52874 Given 06/30/2016 Influenza Vaccination [id number] 60554 Given 07/08/2015 Influenza Vaccination [id number] 19785 Given 07/12/2014 Influenza Vaccination [id number] Vital Signs Date Vital Result Comment 07/15/2021 8:23am Body Temperature 97.1 F Height 67.0 inches 5'7" Peak Expiratory Flow Rate 377 Estimated Peak Flow Rate [place] Body Weight 135 lb 05/28/2021 9:31am BP Systolic 129 mmHg BP Diastolic 87 mmHg Heart Rate 99 /min Body Temperature 97.0 F Respiratory Rate 17 /min Height 67.0 inches 5'7" Weight 282.12 lb O2 % BldC Oximetry 98 % Peak Expiratory Flow Rate 377 Estimated Peak Flow Rate [place] Body Weight 135 lb BMI (Body Mass Index) 44.2 kg/m2 Results Test Acquired Date Facility Test Result H/L Range Note Hemoglobin A1c 05/22/2021 [facility] nter [phone] Hemoglobin A1c 7.2 % Normal 1 Estimated Average Glucose 160 mg/dL High 60-110 1 REFERENCE RANGES: <=5.6% NORMAL 5.7-6.4% SUGGESTS IMPAIRED GLUCOSE META BOLISM/PREDIABETIC >= 6.5% ABNORMAL Procedures Date Code Description Status 05/28/2021 67003 Preventive Medicine 40/64 Years, Est. Completed 05/28/2021 69043 Office/Outpatient Established Mo d MDM 30-39 Min Completed 05/28/2021 [id number] Diabetic Foot Exam Completed 08/2020 [id number] Mammogram Completed Medical Devices Description No Information Available Encounters Type Date Location Provider Dx Diagnosis Office Visit 05/28/2021 9:45a Main Office Mary Ann Gracia FNP Z00.0 0 Encntr for general adult medical [...] Body mass index [BMI] 40.0-4 4.9, adult Assessments Date Code Description Provider 05/28/2021 Z00.00 Encounter for sam pavon adult medical examination without abnormal findings Mary Ann Gracia [facility] 05/28/2021 E11.69 Type 2 diabetes mellitus with ot her specified complication Mary Ann Gracia [facility] 05/28/2021 E78.5 Hyperlipidemia, unspecified Ples Mary Ann delong [facility] 05/28/2021 I10 Essential (primary) hypertension Mary Ann Gracia [facility] 05/28/2021 N18.30 Chronic kidney disease, stage 3 unspecified Mary Ann Gracia [facility] 05/28/2021 D63.1 Anemia in chronic kidney disease Mary Ann Gracia [facility] 05/28/2021 M54.31 Sciatica, right side Dinh Gracia, [facility] 05/28/2021 E66.01 Morbid (severe) obesity due to e xcess calories Mary Ann Gracia [facility] 05/28/2021 Z68.41 Body mass index [BMI] 40.0-44.9, adult Mary Ann Gracia FNP Plan of Treatment Future Appointment(s):* 09/29/2021 8:45 am - Mary Ann Gracia FNP at Main Office Functional Status Functional Condition Comment Date Status Glasses readers Active Independent with all ADL's Activ e Independent with all IADL's Acti ve Mental Status Mental Condition Comment Date Status None Active Referrals Refer to Reason for Referral Status Appt Date [facility] Patient is due for 1st screening colonoscopy. Thank you. Closed 06/09/[address] [place] [address], [address] [place] [address] [phone]
--- OUTSIDE RECORDS SUMMARY | 2021-08-06 06:57 | CCD | Continuity of Care Document ---
Author Author Nishi GRACIA BOX TOE CEMENTER Organization Unknown Address [address] [place] [address] Phone [phone] Care Team Providers Care Tractor Mechanic Helper Name Role Phone [facility] - Orthopaedic Surgery AUTM [phone] Kapil CORLEY, Sujata AUTM [phone] Malik Shen D.O. AUTM [phone] [facility] - [facility]mic AUTM [phone] [facility] - Surgery AUTM [phone] Problems Active Problems Provider Date Hyperlipidemia Mary [...] needed for pain 30tabs Mary Ann Gracia, [facility] 02/22/2014 Nystatin 604454Trzz/GM Powder apply to affected area twice daily as needed 120g B37.2 Zbigniew Gracia [facility] 02/22/2014 Aspir-[address] 1 by mouth every day 100tabs Unknown Multivitamin Adult Tablets 1 tab po daily Unknown Humalog 100Unit/ML Solution inject 14 units daily before meals as directed 20ml Dinh Gracia [facility] Lisinopril 20mg Tablets take 1 tablet by mouth every morning for blood pressure 90tabs Mary Ann Gracia [facility] Hydrochlorothiazide 12.5mg Capsule s take 1 capsule by mouth daily 90caps Mary Ann Gracia [facility] Dhkfp-7-Yped Ethyl Esters 1gm Caps ules take 2 capsules by mouth twice a day 360caps Dinh Gracia [facility] Janumet 50-1000mg Tablets take 1 tablet by mouth twice a day 180tabs Mary Ann Gracia [facility] 00 Levemir 100Unit/ML Solution inject 130 units subcutaneously twice a day for diabetes 30ml Mary Ann Sheppard [facility] Magnesium Oxide 500mg Tablets 2 by mouth every day Unknown Immunizations CPT Code Status Date Vaccine Lot # 87234 Given 07/15/2021 Influenza Virus Vaccine, Nathanael drivalent,multidose vial [id number] 55319 Given 06/28/2020 Influenza Virus Vaccine, Nathanael drivalent,multidose vial [id number] 03391 Given 07/31/2019 Influenza Virus Vaccine, Nathanael drivalent,multidose vial [id number] 96969 Given 06/08/2018 Influenza Virus Vaccine, Nathanael drivalent,multidose vial [id number] 93226 Given 2018 Adacel 11 Yrs or older 84881 Given 07/29/2017 Influenza Virus Vaccine, Nathanael drivalent,multidose vial [id number] 37713 Given 06/30/2016 Influenza Vaccination [id number] 81078 Given 07/08/2015 Influenza Vaccination [id number] 50995 Given 07/12/2014 Influenza Vaccination [id number] Vital Signs Date Vital Result Comment 07/15/2021 8:23am Body Temperature 97.1 F Height 67.0 inches 5'7" Peak Expiratory Flow Rate 377 Estimated Peak Flow Rate [place] Body Weight 135 lb 05/28/2021 9:31am BP Systolic 129 mmHg BP Diastolic 87 mmHg Heart Rate 99 /min Body Temperature 97.0 F Respiratory Rate 17 /min Height 67.0 inches 5'7" Weight 282.12 lb O2 % BldC Oximetry 98 % Peak Expiratory Flow Rate 377 Estimated Peak Flow Rate [place] Body Weight 135 lb BMI (Body Mass Index) 44.2 kg/m2 Results Test Acquired Date Facility Test Result H/L Range Note Hemoglobin A1c 05/22/2021 [facility] nter [phone] Hemoglobin A1c 7.2 % Normal 1 Estimated Average Glucose 160 mg/dL High 60-110 1 REFERENCE RANGES: <=5.6% NORMAL 5.7-6.4% SUGGESTS IMPAIRED GLUCOSE META BOLISM/PREDIABETIC >= 6.5% ABNORMAL Procedures Date Code Description Status 05/28/2021 62717 Preventive Medicine 40/64 Years, Est. Completed 05/28/2021 99777 Office/Outpatient Established Mo d MDM 30-39 Min Completed 05/28/2021 [id number] Diabetic Foot Exam Completed 08/2020 [id number] Mammogram Completed Medical Devices Description No Information [...] 4.9, adult Assessments Date Code Description Provider 07/15/2021 Z23 Encounter for immunization Mary Ann Stanley FNP 05/28/2021 Z00.00 Encounter for genera l adult medical examination without abnormal findings Mary Ann Gracia [facility] 05/28/2021 E11.69 Type 2 diabetes mellitus with ot her specified complication Mary Ann Gracia [facility] 05/28/2021 E78.5 Hyperlipidemia, unspecified Ples Mary Ann delong [facility] 05/28/2021 I10 Essential (primary) hypertension Mary Ann Gracia [facility] 05/28/2021 N18.30 Chronic kidney disease, stage 3 unspecified Mary Ann Gracia [facility] 05/28/2021 D63.1 Anemia in chronic kidney disease Mary Ann Gracia [facility] 05/28/2021 M54.31 Sciatica, right side Dinh Gracia [facility] 05/28/2021 E66.01 Morbid (severe) obesity due to e xcess calories Mary Ann Gracia [facility] 05/28/2021 Z68.41 Body mass index [BMI] [...] to Reason for Referral Status Appt Date [facility] Patient is due for 1st screening colonoscopy. Thank you. Closed 06/09/[address] [place] [address], [address] [place] [address] [phone]
--- OUTSIDE RECORDS SUMMARY | 2021-08-06 06:58 | CCD | Continuity of Care Document ---
Author Author Nishi GRACIA INSEAMER Organization Unknown Address [address] [place] [address] Phone [phone] Care Team Providers Care Roller Shop Utility Worker Name Role Phone [facility] - Orthopaedic Surgery AUTM [phone] Kapil CORLEY, Sujata AUTM [phone] Malik Shen D.O. AUTM [phone] [facility] AUTM [phone] Problems Active Problems Provider Date Hyperlipidemia Mary Ann Gracia FNP Onset: 05/28/2021 Essential hypertension Mary Ann Gracia FNP Onset: Type 2 diabetes mellitus Mary Ann Gracia [facility] Onset: 021 Chronic kidney disease stage 3 Mary Ann Gracia [facility] Onset: 0 05/28/2021 Anemia of chronic renal failure Mary Ann Gracia [facility] Onset: 05/28/2021 Social History Type Date Description [...] needed for pain 30tabs Mary Ann Gracia [facility] 02/22/2014 Nystatin 355580Ircz/GM Powder apply to affected area twice daily as needed 120g B37.2 Zbigniew Gracia [facility] 02/22/2014 Aspir-[address] 1 by mouth every day 100tabs Unknown Multivitamin Adult Tablets 1 tab po daily Unknown Humalog 100Unit/ML Solution inject 14 units daily before meals as directed 20ml Dinh Gracia [facility] Lisinopril 20mg Tablets take 1 tablet by mouth every morning for blood pressure 90tabs Mary Ann Gracia [facility] Hydrochlorothiazide 12.5mg Capsule s take 1 capsule by mouth daily 90caps Mary Ann Gracia [facility] Zjagv-1-Ewrx Ethyl Esters 1gm Caps ules take 2 capsules by mouth twice a day 360caps Dinh Gracia [facility] Janumet 50-1000mg Tablets take 1 tablet by mouth twice a day 180tabs Mary Ann Gracia [facility] 00 Levemir 100Unit/ML Solution inject 130 units subcutaneously twice a day for diabetes 30ml Pl Mary Ann salinas [facility] Magnesium Oxide 500mg Tablets 2 by mouth every day Unknown History Medications Mupirocin 2% Ointment apply to open areas twice a day until healed 22gm R23.8 Kim Anne PA 01/02/2021 - 05/28/2021 Immunizations CPT Code Status Date Vaccine Lot # [id number] Given 06/28/2020 Influenza Virus Vaccine, Quadrivalent,age 3 and up,multidose vial [id number] 87440 Given 07/31/2019 Influenza Virus Vaccine, Quadrivalent,age 3 and up,multidose vial [id number] 42159 Given 06/08/2018 Influenza Virus Vaccine, Quadrivalent,age 3 and up,multidose vial [id number] 93838 Given 2018 Adacel 11 Yrs or older 45558 Given 07/29/2017 Influenza Virus Vaccine, Quadrivalent,age 3 and up,multidose vial [id number] 17422 Given 06/30/2016 Influenza Vaccination [id number] 58467 Given 07/08/2015 Influenza Vaccination [id number] 52258 Given 07/12/2014 Influenza Vaccination [id number] Vital Signs Date Vital Result Comment 05/28/2021 9:31am BP Systolic 129 mmHg BP Diastolic 87 mmHg Heart Rate 99 /min Body Temperature 97.0 F Respiratory Rate 17 /min Height 67.0 inches 5'7" Weight 282.12 lb O2 % BldC Oximetry 98 % Peak Expiratory Flow Rate 377 Estimated Peak Flow Rate [place] Body Weight 135 lb BMI (Body Mass [...] Flow Rate 379 Estimated Peak Flow Rate [place] Body Weight 135 lb BMI (Body Mass Index) 42.6 kg/m2 Results Test Acquired Date Facility Test Result H/L Range Note Hemoglobin A1c 05/22/2021 [facility] nter [phone] Hemoglobin A1c 7.2 % Normal 1 Estimated Average Glucose 160 mg/dL High 60-110 1 REFERENCE RANGES: <=5.6% NORMAL 5.7-6.4% SUGGESTS IMPAIRED GLUCOSE META BOLISM/PREDIABETIC >= 6.5% ABNORMAL Procedures Date Code Description Status 05/28/2021 00019 Preventive Medicine 40/64 Years, Est. Completed 05/28/2021 28597 Office/Outpatient Established Mo d MDM 30-39 Min Completed 05/28/2021 [id number] Diabetic Foot Exam Completed 01/02/2021 63484 Office/Outpatient Established Lo w MDM 20-29 Min Completed 12/30/2020 17621 Office/Outpatient Established Lo w MDM 20-29 Min Completed 08/2020 [id number] Mammogram Completed Medical Devices Description No Information Available Encounters Type Date Location Provider Dx Diagnosis Office Visit 05/28/2021 9:45a Main Office Mary Ann Gracia, [facility] Z00.0 0 Encntr for general adult medical [...] examination without abnormal findings Mary Ann Gracia, [facility] 05/28/2021 E11.69 Type 2 diabetes mellitus with ot her specified complication Mary Ann Gracia, [facility] 05/28/2021 E78.5 Hyperlipidemia, unspecified Ples Mary Ann delong, [facility] 05/28/2021 I10 Essential (primary) hypertension Mary Ann Gracia, [facility] 05/28/2021 N18.30 Chronic kidney disease, stage 3 unspecified Mary Ann Gracia, [facility] 05/28/2021 D63.1 Anemia in chronic kidney disease Mary Ann Gracia, [facility] 05/28/2021 M54.31 Sciatica, right side Dinh Gracia, [facility] 05/28/2021 E66.01 Morbid (severe) obesity due to e xcess calories Mary Ann Gracia, [facility] 05/28/2021 Z68.41 Body mass index [BMI] 40.0-44.9, adult Mary Ann Gracia, [facility] 01/02/2021 R23.8 Blister Rhianna Anne cia, PA 12/30/2020 D50.9 Iron deficiency anemia Kim Boone PA 12/30/2020 N18.30 Chronic kidney disease stage 3 P Kim banuelos PA Plan of Treatment 05/28/2021 - Mary Ann Gracia FNP* Z00.00 [...] on diet and exercise. Recheck A1C in 3 months * Follow up:* 4 months with labs * E78.5 Hyperlipidemia, unspecified* Comments:* continue statin * I10 Essential (primary) hypertension* Comments:* controlled, continue current medications * N18.30 Chronic kidney disease, stage 3 unspecified* Comments:* follows with nephrology * D63.1 Anemia in chronic kidney disease* Comments:* following with nephrology * M54.31 Sciatica, right side* New Orders:* PT Order, Scheduled: 05/28/21 * E66.01 Morbid (severe) obesity due to [...]
--- OUTSIDE RECORDS SUMMARY | 2021-08-06 06:58 | CCD | Continuity of Care Document ---
Author Author Nishi GRACIA ENGINE HEAD REPAIRER Organization Unknown Address [address] [place] [address] Phone [phone] Care Team Providers Care Mine Safety Manager Name Role Phone [facility] - Orthopaedic Surgery AUTM [phone] Kapil CORLEY, Sujata AUTM [phone] Malik Shen D.O. AUTM [phone] [facility] AUTM [phone] Problems Description No Information Available Social History Type Date Description Comments Sex Unknown Tobacco Use Start: Unknown Never Used Smokeless Tobacco ETOH Use Denies alcohol use Tobacco Use Start: Unknown Patient has never smoked Recreational Drug Use Denies Drug Use Smoking Status Reviewed: 11/19/20 Patient has never smoked Exercise Type/Frequency Exercises [...] SIG Qnty Indications Ordering Provide r Date Mupirocin 2% Ointment apply to open areas twice a day until healed 22gm R23.8 Kim Anne PA 01/02/2021 B-D Insulin Syringe Ultrafine II/0.3ML/3 1G X 5/16" 31G X 5/16" 0.3 ML Misc use to inject insulin] sq [five times a day 500unPeg Zhang M.D. 10/03/2020 Olopatadine HCL 0.1% Solution 1 drop both eyes twice a day 15ml H10.13 MaryA nn Gracia FNP 05/29/2020 Trulicity 1.5mg/0.5ML Solution Pen [...] inject insulin sc five times a day 400unPeg Zhang M.D. 03/27/2014 Tramadol Hydrochloride/Acetaminophen 37.5-325mg Tablets 1-2 tab by mouth every 6 hours as needed for pain 30tabs Mary Ann Gracia FNP 02/22/2014 Nystatin 000730Aejq/GM Powder apply to affected area twice daily as needed 120g B37.2 Zbigniew Gracia, [facility] 02/22/2014 Aspir-[address] 1 by mouth every day 100tabs Unknown Multivitamin Adult Tablets 1 tab po daily Unknown Humalog 100Unit/ML Solution inject 14 units daily before meals as directed 20ml Dinh Gracia [facility] Lisinopril 20mg Tablets take 1 tablet by mouth every morning for blood pressure 90tabs Mary Ann Gracia [facility] Hydrochlorothiazide 12.5mg Capsule s take 1 capsule by mouth daily 90caps Mary Ann Gracia [facility] Heccm-1-Bnlf Ethyl Esters 1gm Caps ules take 2 capsules by mouth twice a day 360caps Dinh Gracia, [facility] Janumet 50-1000mg Tablets take 1 tablet by mouth twice a day 180tabs Mary Ann Gracia [facility] 00 Levemir 100Unit/ML Solution inject 92 units subcutaneously twice a day for diabetes 30ml Pl Mary Ann [place], [facility] Magnesium Oxide 500mg Tablets 2 by mouth every day Unknown Immunizations CPT Code Status Date Vaccine Lot # 52753 Given 06/28/2020 Influenza Virus Vaccine, Quadrivalent,age 3 and up,multidose vial [id number] 45993 Given 07/31/2019 Influenza Virus Vaccine, Quadrivalent,age 3 and up,multidose vial [id number] 22583 Given 06/08/2018 Influenza Virus Vaccine, Quadrivalent,age 3 and up,multidose vial [id number] 51337 Given 2018 Adacel 11 Yrs or older 86925 Given 07/29/2017 Influenza Virus Vaccine, Quadrivalent,age 3 and up,multidose vial [id number] 30461 Given 06/30/2016 Influenza Vaccination [id number] 72396 Given 07/08/2015 Influenza Vaccination [id number] 53461 Given 07/12/2014 Influenza Vaccination [id number] Vital Signs Date Vital Result Comment 11/19/2020 11:09am BP Systolic 149 mmHg BP Diastolic 107 mmHg BP Systolic Recheck 142 mmHg BP Diastolic Recheck 104 mmHg Heart Rate 108 /min Body Temperature 98.8 F Respiratory Rate 18 /min Height 67.0 inches 5'7" Weight 272.12 lb O2 % BldC Oximetry 98 % Peak Expiratory Flow Rate 379 Estimated Peak Flow Rate [place] Body Weight 135 lb BMI (Body Mass Index) 42.6 kg/m2 06/28/2020 10:19am Body Temperature 97.1 F Height 67.0 inches 5'7" Peak Expiratory Flow Rate 379 Estimated Peak Flow Rate [place] Body Weight 135 lb Results Test Acquired Date Facility Test Result H/L Range Note Hemoglobin A1c 05/22/2021 [facility] nter [phone] Hemoglobin A1c 7.2 % Normal 1 Estimated Average Glucose 160 mg/dL High 60-110 1 REFERENCE RANGES: <=5.6% NORMAL 5.7-6.4% SUGGESTS IMPAIRED GLUCOSE META BOLISM/PREDIABETIC >= 6.5% ABNORMAL Procedures Date Code Description Status 01/02/2021 63038 Office/Outpatient Established Lo w MDM 20-29 Min Completed 12/30/2020 69208 Office/Outpatient Established Lo w MDM 20-29 Min Completed 08/2020 [id number] Mammogram Completed 05/13/2020 [id number] Diabetic Foot Exam Completed Medical Devices Description No Information Available Encounters Type Date Location Provider Dx Diagnosis Office Visit 01/02/2021 9:00a Main Office Kim Anne PA R23.8 Other skin changes Office Visit 12/30/2020 3:15p Main Office Kim Anne PA D50.9 Iron deficiency anemia, unspecified N18.30 Chronic kidney disease, stag e 3 unspecified Assessments Date Code Description Provider 01/02/2021 R23.8 Blister Rhianna Anne cia, PA 12/30/2020 D50.9 Iron deficiency anemia Kim Boone PA 12/30/2020 N18.30 Chronic kidney disease stage 3 P Kim banuelos PA Plan of Treatment Future Appointment(s):* 05/28/2021 9:45 am - Mary Ann Gracia FNP at Main Office 01/02/2021 - Kim Anne PA* R23.8 Blister* New Medication:* Mupirocin 2 % - apply to open areas twice a day until healed * Comments:* keep area clean, dryseperate toes with gauze paduse bactrobanmonitor for signs of infectioncheck feet daily Functional Status Functional Condition Comment Date Status Glasses readers Active Independent with all ADL's Activ e Independent with all IADL's Acti ve Mental Status Mental Condition Comment Date Status None Active Referrals Description No Information Available
--- OUTSIDE RECORDS SUMMARY | 2021-08-06 06:58 | CCD ---
Author Author [facility] Organization [facility] Address Unknown Phone Unavailable Care Team Providers [facility] [employer] Name Role Phone Petrsagrario, Peach Kim PA-C Unavailable Unavailabl e Petrancosta, Peach Kim PA-C Unavailable Unavailabl e Petrancosta, Peach Kim PA-C Unavailable Unavailabl e Petrancosta, Peach Kim PA-C Unavailable Unavailabl e Petrancosta, Peach Kim PA-C Unavailable Unavailabl e Petrancosta, Peach Kim PA-C Unavailable Unavailabl e Petrancosta, Peach Kim PA-C Unavailable Unavailabl e Petrancosta, Peach Kim PA-C Unavailable Unavailabl e Petrancosta, Peach Kim PA-C Unavailable Unavailabl e Petrancosta, Peach Kim PA-C Unavailable Unavailabl e Petrancosta, Peach Kim PA-C Unavailable Unavailabl e Petrancosta, Peach Kim PA-C Unavailable Unavailabl e Petrancosta, Peach Kim PA-C Unavailable Unavailabl e Petrancosta, Peach Kim PA-C Unavailable Unavailabl e Petrancosta, Peach Kim PA-C Unavailable Unavailabl e Petrancosta, Peach Kim PA-C Unavailable Unavailabl e Petrancosta, Peach Kim PA-C Unavailable Unavailabl e Petrancosta, Peach Kim PA-C Unavailable Unavailabl e Petrancosta, Peach Kim PA-C Unavailable Unavailabl e Petrancosta, Peach Kim PA-C Unavailable Unavailabl e Petrancosta, Peach Kim PA-C Unavailable Unavailabl e Petrancosta, Peach Kim PA-C Unavailable Unavailabl e Petrancosta, Peach Kim PA-C Unavailable Unavailabl e Petrancosta, Peach Kim PA-C Unavailable Unavailabl e Petrancosta, Peach Kim PA-C Unavailable Unavailabl e LINDO, L TYLER WALLS Unavailable Unavailable LINDO, L TYLER WALLS Unavailable Unavailable LINDO, L TYLER WALLS Unavailable Unavailable LINDO, L TYLER WALLS Unavailable Unavailable LINDO, L TYLER WALLS Unavailable Unavailable LINDO, L TYLER WALLS Unavailable Unavailable LINDO, L TYLER WALLS Unavailable Unavailable LINDO, L TYLER WALLS Unavailable Unavailable LINDO, L TYLER WALLS Unavailable Unavailable LINDO, L TYLER WALLS Unavailable Unavailable LINDO, L TYLER WALLS Unavailable Unavailable LINDO, L TYLER WALLS Unavailable Unavailable LINDO, L TYLER WALLS Unavailable Unavailable LINDO, L TYLER WALLS Unavailable Unavailable LINDO, L TYLER WALLS Unavailable Unavailable LINDO, L TYLER WALLS Unavailable Unavailable LINDO, L TYLER WALLS Unavailable Unavailable LINDO, L TYLER WALLS Unavailable Unavailable LINDO, L TYLER WALLS Unavailable Unavailable LINDO, L TYLER WALLS Unavailable Unavailable LINDO, L TYLER WALLS Unavailable Unavailable LINDO, L TYLER WALLS Unavailable Unavailable LINDO, L TYLER WALLS Unavailable Unavailable LINDO, L TYLER WALLS Unavailable Unavailable LINDO, L TYLER WALLS Unavailable Unavailable LINDO, L TYLER WALLS Unavailable Unavailable LINDO, L TYLER WALLS Unavailable Unavailable LINDO, L TYLER WALLS Unavailable Unavailable LINDO, L TYLER WALLS Unavailable Unavailable LINDO, L TYLER WALLS Unavailable Unavailable LINDO, L TYLER WALLS Unavailable Unavailable LINDO, L TYLER WALLS Unavailable Unavailable LINDO, L TYLER WALLS Unavailable Unavailable LINDO, L TYLER WALLS Unavailable Unavailable LINDO, L TYLER WALLS Unavailable Unavailable LINDO, L TYLER WALLS Unavailable Unavailable LINDO, L TYLER WALLS Unavailable Unavailable LINDO, L TYLER WALLS Unavailable Unavailable LINDO, L TYLER WALLS Unavailable Unavailable LINDO, L TYLER WALLS Unavailable Unavailable LINDO, L TYLER WALLS Unavailable Unavailable LINDO, L TYLER WALLS Unavailable Unavailable LINDO, L TYLER WALLS Unavailable Unavailable LINDO, L TYLER MD Unavailable Unavailable Ovi LINDO MD Unavailable Unavailable Pleskach, Mary Ann RN PRIOR AUTHORIZATION Unavailable Unavailable Pleskach, Mary Ann RN PRIOR AUTHORIZATION Unavailable Unavailable Pleskach, Mary Ann RN PRIOR AUTHORIZATION Unavailable Unavailable Pleskach, Mary Ann RN PRIOR AUTHORIZATION Unavailable Unavailable Pleskach, Mary Ann RN PRIOR AUTHORIZATION Unavailable Unavailable Pleskach, Mary Ann RN PRIOR AUTHORIZATION Unavailable Unavailable Pleskach, Mary Ann RN PRIOR AUTHORIZATION Unavailable Unavailable Pleskach, Mary Ann RN PRIOR AUTHORIZATION Unavailable Unavailable Pleskach, Mary Ann RN PRIOR AUTHORIZATION Unavailable Unavailable Pleskach, Mary Ann RN PRIOR AUTHORIZATION Unavailable Unavailable Pleskach, Mary Ann RN PRIOR AUTHORIZATION Unavailable Unavailable Pleskach, Mary Ann RN PRIOR AUTHORIZATION Unavailable Unavailable Pleskach, Mary Ann RN PRIOR AUTHORIZATION Unavailable Unavailable Pleskach, Mary Ann RN PRIOR AUTHORIZATION Unavailable Unavailable Pleskach, Mary Ann RN PRIOR AUTHORIZATION Unavailable Unavailable Pleskach, Mary Ann RN PRIOR AUTHORIZATION Unavailable Unavailable Pleskach, Mary Ann RN PRIOR AUTHORIZATION Unavailable Unavailable Pleskach, Mary Ann RN PRIOR AUTHORIZATION Unavailable Unavailable Pleskach, Mary Ann RN PRIOR AUTHORIZATION Unavailable Unavailable Pleskach, Mary Ann RN PRIOR AUTHORIZATION Unavailable Unavailable Pleskach, Mary Ann RN PRIOR AUTHORIZATION Unavailable Unavailable Pleskach, Mary Ann RN PRIOR AUTHORIZATION Unavailable Unavailable Pleskach, Mary Ann RN PRIOR AUTHORIZATION Unavailable Unavailable Pleskach, Mary Ann RN PRIOR AUTHORIZATION Unavailable Unavailable Pleskach, Mary Ann RN PRIOR AUTHORIZATION Unavailable Unavailable Pleskach, Mary Ann RN PRIOR AUTHORIZATION Unavailable Unavailable Pleskach, Mary Ann RN PRIOR AUTHORIZATION Unavailable Unavailable Pleskach, Mary Ann RN PRIOR AUTHORIZATION Unavailable Unavailable Pleskach, Mary Ann RN PRIOR AUTHORIZATION Unavailable Unavailable Pleskach, Mary Ann RN PRIOR AUTHORIZATION Unavailable Unavailable Pleskach, Mary Ann RN PRIOR AUTHORIZATION Unavailable Unavailable Pleskach, Mary Ann RN PRIOR AUTHORIZATION Unavailable Unavailable Pleskach, Mary Ann RN PRIOR AUTHORIZATION Unavailable Unavailable Pleskach, Mary Ann RN PRIOR AUTHORIZATION Unavailable Unavailable Pleskach, Mary Ann RN PRIOR AUTHORIZATION Unavailable Unavailable Pleskach, Mary Ann RN PRIOR AUTHORIZATION Unavailable Unavailable Pleskach, Mary Ann RN PRIOR AUTHORIZATION Unavailable Unavailable Pleskach, Mary Ann RN PRIOR AUTHORIZATION Unavailable Unavailable Pleskach, Mary Ann RN PRIOR AUTHORIZATION Unavailable Unavailable Pleskach, Mary Ann RN PRIOR AUTHORIZATION Unavailable Unavailable Pleskach, Mary Ann RN PRIOR AUTHORIZATION Unavailable Unavailable Pleskach, Mary Ann RN PRIOR AUTHORIZATION Unavailable Unavailable Pleskach, Mary Ann RN PRIOR AUTHORIZATION Unavailable Unavailable Pleskach, Mary Ann RN PRIOR AUTHORIZATION Unavailable Unavailable Crawford, L Lolita RPA Unavailable Unavailable Crawford, L Lolita RPA Unavailable Unavailable Crawford, L Lolita RPA Unavailable Unavailable Crawford, L Lolita RPA Unavailable Unavailable Crawford, L Lolita RPA Unavailable Unavailable Crawford, L Lolita RPA Unavailable Unavailable Crawford, L Lolita RPA Unavailable Unavailable Crawford, L Lolita RPA Unavailable Unavailable Crawford, L Lolita RPA Unavailable Unavailable Crawford, L Lolita RPA Unavailable Unavailable Crawford, L Lolita RPA Unavailable Unavailable Crawford, L Lolita RPA Unavailable Unavailable Crawford, L Lolita RPA Unavailable Unavailable Crawford, L Lolita RPA Unavailable Unavailable Crawford, L Lolita RPA Unavailable Unavailable Crawford, L Lolita RPA Unavailable Unavailable Crawford, L Lolita RPA Unavailable Unavailable Crawford, L Lolita RPA Unavailable Unavailable Crawford, L Lolita RPA Unavailable Unavailable Crawford, L Lolita RPA Unavailable Unavailable Crawford, L Lolita RPA Unavailable Unavailable Crawford, L Lolita RPA Unavailable Unavailable Crawford, L Lolita RPA Unavailable Unavailable Crawford, L Lolita RPA Unavailable Unavailable Crawford, L Lolita RPA Unavailable Unavailable Crawford, L Lolita RPA Unavailable Unavailable Crawford, L Lolita RPA Unavailable Unavailable Crawford, L Lolita RPA Unavailable Unavailable Crawford, L Lolita RPA Unavailable Unavailable Crawford, L Lolita RPA Unavailable Unavailable Crawford, L Lolita RPA Unavailable Unavailable Crawford, L Lolita RPA Unavailable Unavailable Re-disclosure Warning The records that you are about to access may contain information from federally-assisted alcohol or drug abuse programs. If such information is present, then the following federally mandated warning applies: This information has been disclosed to you from records protected by federal confidentiality rules (42 CFR part 2). The federal rules prohibit you from making any further disclosure of this information unless further disclosure is expressly permitted by the written consent of the person to whom it pertains or as otherwise permitted by 42 CFR part 2. A general authorization for the release of medical or other information is NOT sufficient for this purpose. The Federal rules restrict any use of the information to criminally investigate or prosecute any alcohol or drug abuse patient.The records that you are about to access may contain highly sensitive health information, the redisclosure of which is protected by Article 27-F of the [facility] Public Health law. If you continue you may have access to information: Regarding HIV / AIDS; Provided by facilities licensed or operated by the [facility] Office of Mental Health; or Provided by the [facility] Office for People With Developmental Disabilities. If such information is present, then the following [facility] mandated warning applies: This information has been disclosed to you from confidential records which are protected by state law. State law prohibits you from making any further disclosure of this information without the specific written consent of the person to whom it pertains, or as otherwise permitted by law. Any unauthorized further disclosure in violation of state law may result in a fine or [place] health [facility] facility sentence or both. A general authorization for the release of medical or other information is NOT sufficient authorization for further disc losure. Family History Family Member Name Family Member Gender Family Member Status Date o f Status Description Data Source(s) Unknown Unknown Problem [facility] ([facility] [employer]) Unknown Unknown Problem [facility] ([facility] Unknown Unknown Problem [facility] ([facility] Encounters Encounter Providers Location Date Indications Data Source(s ) Outpatient Attender: Lolita Espinoza/Rogers/Jhon/Rahda priest 06/09/2021 11:30:00 AM EDT [facility] ([facility] Outpatient Attender: Mary Ann Gracia [facility] Main Office 05/28/2021 0 9:45:00 AM EDT [facility] ([facility] Outpatient Attender: Kim Anne PA-C Main Office 01/02/2021 09:00:00 AM EDT [facility] ([facility] Outpatient Attender: Kim Anne PA-C Main Office 12/30/2020 03:15:00 PM EDT [facility] ([facility] Outpatient Attender: Mary Ann Gracia [facility] Main Office 11/19/2020 0 9:45:00 AM EST [facility] ([facility] 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 Immunizations Vaccine Date Status Description Data Source(s) New in 2012. IIV4 07/15/2021 08:22:00 AM EDT completed [facility] ([facility] New in 2012. IIV4 06/28/2020 10:20:00 AM EDT completed [facility] ([facility] Medications Medication Brand Name Start Date Product Form Dose Route Admi nistrative Instructions Pharmacy Instructions Status Indications Reaction Description Data Source(s) SUPREP BOWEL PREP KIT 17.5-3.13-1.6 gram SODIUM, POTASSIUM,M AG SULFATES 07/23/2021 12:00:00 AM EDT recon soln 354 TAKE PER DOCTOR'S BOWEL PREP DIRECTIONS TAKE PER DOCTOR'S BOWEL PREP DIRECTIONS SOLD: 07/28/2021 [facility] Rosuvastatin calcium 40 MG Oral Tablet ROSUVASTATIN CALCIUM 03/04/2021 12:00:00 AM EDT tablet 30 TAKE ONE TABLET BY MOUTH FOR CHOLESTEROL TAKE ONE TABLET BY MOUTH EVERY DAY FOR CHOLESTEROL SOLD: 03/04/2021 [facility] 100 unit/mL 01/24/2021 12:00:00 AM EDT solution 10 INJECT 14 UNITS DAILY BEFORE MEALS DIRECTED MAX OF 42 UNITS DAILY INJECT 14 UNITS DAILY BEFORE MEALS DIRECTED MAX OF 42 UNITS DAILY SOLD: 01/25/2021 [facility] 100 unit/mL 01/24/2021 12:00:00 AM EDT solution 10 INJECT 14 UNITS DAILY BEFORE MEALS DIRECTED MAX OF 42 UNITS DAILY INJECT 14 UNITS DAILY BEFORE MEALS DIRECTED MAX OF 42 UNITS DAILY SOLD: 05/02/2021 [facility] Acetaminophen 325 MG / tramadol hydrochloride 37.5 MG Oral Tablet 37.5-325 mg TRAMADOL HCL/ACETAMINOPHEN 01/21/2021 12:00:00 AM EDT tablet 30 TAKE 1 TO 2 TABLETS BY MOUTH EVERY 6 HOURS NEEDED FOR PAIN MAXIMUM DAILY DOSE = 6 TAKE 1 TO 2 TABLETS BY MOUTH EVERY 6 HOURS NEEDED FOR PAIN MAXIMUM DAILY DOSE = 6 SOLD: 01/23/2021 [facility] 100 unit/mL 01/21/2021 12:00:00 AM EDT solution 30 INJECT 92 UNITS UNDER THE SKIN TWO TIMES A DAY FOR DIABETES INJECT 92 UNITS UNDER THE SKIN TWO TIMES A DAY FOR DIABETES SOLD: 01/23/2021 [facility] 2 % 01/02/2021 12:00:00 AM EDT ointment 22 APPLY TO OPEN AREAS TWICE A DAY UNTIL HEALED APPLY TO OPEN AREAS TWICE A DAY UNTIL HEALED SOLD: 01/02/2021 [facility] Mupirocin 0.02 MG/MG Topical Ointment Mupirocin 01/02/2021 12:00:00 AM EDT completed [facility] ([facility] Acetaminophen 325 MG / tramadol hydrochloride 37.5 MG Oral Tablet 37.5-325 mg TRAMADOL HCL/ACETAMINOPHEN 12/31/2020 12:00:00 AM EDT tablet 30 TAKE 1-2 TABLETS BY MOUTH EVERY 4 TO 6 HOURS NEEDED FOR PAIN MAXIMUM DAILY DOSE = 6 TABLETS TAKE 1-2 TABLETS BY MOUTH EVERY 4 TO 6 H OURS NEEDED FOR PAIN MAXIMUM DAILY DOSE = 6 TABLETS SOLD: 01/01/2021 [facility] Acetaminophen 325 MG / tramadol hydrochloride 37.5 MG Oral Tablet 37.5-325 mg TRAMADOL HCL/ACETAMINOPHEN 12/12/2020 12:00:00 AM EDT tablet 30 TAKE 1-2 TABS.BY MOUTH EVERY 4 TO 6 HOURS NEEDED FOR PAIN MAX=6TABS/DAY TAKE 1-2 TABS.BY MOUTH EVERY 4 TO 6 HOURS NEEDED FOR PAIN MAX=6TABS/DAY SOLD: 12/13/2020 [facility] 1 % 11/20/2020 12:00:00 AM EST gel 100 APPLY 2 GRAMS TO RIGHT KNEE UP TO 4 TIMES A DAY FOR PAIN APPLY 2 GRAMS TO RIGHT KNEE UP TO 4 TIMES A DAY FOR PA IN SOLD: 11/23/2020 [facility] Acetaminophen 325 MG / tramadol hydrochloride 37.5 MG Oral Tablet 37.5-325 mg TRAMADOL HCL/ACETAMINOPHEN 11/20/2020 12:00:00 AM EST tablet 30 TAKE 1-2 TABLETS BY MOUTH EVERY 4-6 HOURS NEEDED FOR PAIN MAXIMUM DAILY DOSE = 6 TABLETS TAKE 1-2 TABLETS BY MOUTH EVERY 4-6 HOUR S NEEDED FOR PAIN MAXIMUM DAILY DOSE = 6 TABLETS SOLD: 11/20/2020 [facility] Acetaminophen 325 MG / tramadol hydrochloride 37.5 MG Oral Tablet 37.5-325 mg TRAMADOL HCL/ACETAMINOPHEN 10/28/2020 12:00:00 AM EST tablet 30 TAKE 1-2TABS. BY MOUTH EVERY 4-6HRS NEEDED FOR PAIN MAX=6TABLETS/DAY TAKE 1-2TABS. BY MOUTH EVERY 4-6HRS NEEDED FOR PAIN MAX=6TABLETS/DAY SOLD: 10/29/2020 [facility] B-D Insulin Syringe Ultrafine II/0.3ML/31G X 5/16" 10/03/2020 12:00:00 AM EST active [facility] ( [facility] Acetaminophen 325 MG / tramadol hydrochloride 37.5 MG Oral Tablet 37.5-325 mg TRAMADOL HCL/ACETAMINOPHEN 09/27/2020 12:00:00 AM EST tablet 30 TAKE 1-2 TABS.BY MOUTH EVERY 4-6 HOURS NEEDED FOR PAIN MAX=6 TABS/DAY TAKE 1-2 TABS.BY MOUTH EVERY 4-6 HOURS NEEDED FOR PAIN MAX=6 TABS/DAY SOLD: 09/27/2020 [facility] 37.5-325 mg 08/28/2020 12:00:00 AM EST tablet 30 TAKE 1-2 TABLETS BY MOUTH EVERY 4-6 HOURS NEEDED FOR PAIN MAXIMUM DAILY DOSE = 6 TABLETS TAKE 1-2 TABLETS BY MOUTH EVERY 4-6 HOURS NEEDED FOR PAIN MAXIMUM DAILY DOSE = 6 TABLETS SOLD: 08/30/2020 [facility] 100,000 unit/gram 07/26/2020 12:00:00 AM EDT powder 120 APPLY TO AFFECTED AREA(S) TWO TIMES A DAY NEEDED APPLY TO AFFECTED AREA(S) TWO TIMES A DA Y NEEDED SOLD: 11/23/2020 [facility] 100,000 unit/gram 07/26/2020 12:00:00 AM EDT powder 120 APPLY TO AFFECTED AREA(S) TWO TIMES A DAY NEEDED APPLY TO AFFECTED AREA(S) TWO TIMES A DA Y NEEDED SOLD: 07/29/2020 [facility] Acetaminophen 325 MG / tramadol hydrochloride 37.5 MG Oral Tablet 37.5-325 mg TRAMADOL HCL/ACETAMINOPHEN 07/26/2020 12:00:00 AM EDT tablet 30 TAKE 1-2 TABLETS BY MOUTH EVERY 4-6HRS NEEDED FOR PAIN MAX=6TABS/DAY TAKE 1-2 TABLETS BY MOUTH EVERY 4-6HRS NEEDED FOR PAIN MAX=6TABS/DAY SOLD: 07/29/2020 [facility] Insurance Providers Payer name Policy type / Coverage type Policy ID Covered alliance party ID Covered alliance party's relationship to licea Policy Licea Plan Information [id number] [facility] [id number] [facility] [id number] [facility]ARD[facility] [id number] 2 [id number] [facility] [id number] SP [id number] [facility] [id number] SP [id number] [facility] [id number] SP [id number] [place] [employer] [id number] Family Dependent [id number] [place] [employer] [id number] Family Dependent [id number] [place] [employer] [id number] ..[id number] Family Dependent [id number] [place] [employer] [id number] ..[id number] Family Dependent [id number] [place] [employer] [id number] ..[id number] Family Dependent [id number] [place] [employer] [id number] ..[id number] Family Dependent [id number] [place] [facility] [id number] S [id number] [place] [employer] [id number] ..[id number] .[id number] Family Dependent [id number] [place] [employer] [id number] .[id number] Family Dependent [id number] [place] [employer] [id number] Family Dependent [id number] [facility] Commercial [id number] Family Dependent [id number] [facility] Commercial [id number] Family Dependent [id number] [facility] Commercial [id number] Family Dependent BS [facility] Commercial [id number] Family Dependent [id number] [facility] [id number] 18 [id number] [facility] [id number] 18 [id number] [facility] -I/P [id number] 18 [id number] BS [facility] B [id number] P [id number] BS [facility] Maintenance Organization [place] [id number] Family Dependent [facility] Commercial [id number] Self [id number] [facility] Commercial [id number] Family Dependent [id number] [facility] Commercial [id number] Family Dependent [id number] [facility] Commercial [id number] Family Dependent [id number] Problems, Conditions, and Diagnoses Code Display Name Description Problem Type Effective Dates Data Source(s) 50211711 Essential hypertension Essential hypertension Problem 06/09/2021 12:00:00 AM EDT [facility] ([facility], ) D63.1 Anemia of chronic renal failure Anemia of chronic tessie l failure Problem 05/28/2021 12:00:00 AM EDT [facility] ([facility] N18.30 Chronic kidney disease stage 3 Chronic kidney disease stage 3 Problem 05/28/2021 12:00:00 AM EDT [facility] ([facility] E11.69 Type 2 diabetes mellitus Type 2 diabetes mellitus Prob dennis 05/28/2021 12:00:00 AM EDT [facility] ([facility] I10 Essential hypertension Essential hypertension Problem 05/28/2021 12:00:00 AM EDT [facility] ([facility] E78.5 Hyperlipidemia Hyperlipidemia Problem 05/28/2021 12:00: 00 AM EDT [facility] ([facility] Surgeries/Procedures Procedure Description Date Indications Data Source(s) OFFICE OUTPATIENT NEW 30 MINUTES 06/09/2021 12:00:00 A M EDT [facility] ([facility], ) Diabetic Foot Exam 05/28/2021 12:00:00 AM EDT [facility] ([facility] OFFICE OUTPATIENT VISIT 25 MINUTES 05/28/2021 12:00:00 AM EDT [facility] ([facility] PERIODIC PREVENTIVE MED EST PATIENT 40-64YRS 12:00:00 AM EDT [facility] ([facility] OFFICE OUTPATIENT VISIT 15 MINUTES 01/02/2021 12:00:00 AM EDT [facility] ([facility] OFFICE OUTPATIENT VISIT 15 MINUTES 12/30/2020 12:00:00 AM EDT [facility] ([facility] Brief Emotional/Behav Assessment W/ Scoring Doc Per Standard Inst 11/19/2020 12:00:00 AM EST [facility] ([facility] OFFICE OUTPATIENT VISIT 25 MINUTES 11/19/2020 12:00:00 AM EST [facility] ([facility] Mammogram 08/27/2020 12:00:00 AM EST M [facility] ([facility] Follows with Dr Lindo Results ID Date Data Source [id number] 08/01/2021 09:40:00 AM EDT [facility] Name Value Range Interpretation Code Description Data Sonia rce(s) Supporting Document(s) SARS-CoV-2 (COVID-19) RNA [Presence] in Respiratory specimen by KLAUDIA with probe detection Not Detected [facility] This lab was ordered by [facility] and reported by [employer]. ID Date Data Source [id number] 05/22/2021 10:21:00 AM EDT [facility] ([facility] Name Value Range Interpretation Code Description Data Sonia rce(s) Supporting Document(s) Hemoglobin A1c/Hemoglobin.total in Blood 7.2 % [facility] ([facility] <content>REFERENCE RANGES:</content><br/ ><content></content>
<content><=5.6% NORMAL</content>
<content>5.7-6.4% SUGGESTS IMPAIRED GLUCOSE METABOLISM/PREDIABETIC</content>
<content>>= 6.5% ABNORMAL</content>
<content></content> Estimated Average Glucose 160 mg/dL 60-110 [facility] ([facility] ID Date Data Source [id number] 11/18/2020 10:33:00 AM EST [facility] ([facility] Name Value Range Interpretation Code Description Data Sonia rce(s) Supporting Document(s) Creatinine, Urine 127.0 mg/dL [facility] ([facility] Malb Urine Siemens 296.0 mg/L [facility] ([facility] Elliott/Creat Ratio 233.0 MCG/MG 0.0-30.0 [facility] ([facility] THE [employer] STATES THAT MICROALBUMINURIA IS PRESENT IF THE MICROALBUMIN/CREATININE RATIO EXCEEDS 30 MCG/MG. THE THRESHOLD FOR CLINICAL ALBUMINURIA IS REACHED AT 300 MCG/MG. THE CLASSIFICATION OF A PATIENT SHOULD BE BASED UPON AT LEAST 2 OF 3 ABNORMAL RESULTS ON SPECIMENS COLLECTED WITHIN A 3 TO 6 MONTH TIME FRAME. ID Date Data Source [id number] 11/18/2020 10:30:00 AM EST [facility] ([facility] Name Value Range Interpretation Code Description Data Sonia rce(s) Supporting Document(s) Estimated Average Glucose 203 mg/dL 60-110 [facility] ([facility] Hemoglobin A1c/Hemoglobin.total in Blood 8.7 % [facility] ([facility] <content>REFERENCE RANGES:</content><br/ ><content></content>
<content><=5.6% NORMAL</content>
<content>5.7-6.4% SUGGESTS IMPAIRED GLUCOSE METABOLISM/PREDIABETIC</content>
<content>>= 6.5% ABNORMAL</content>
<content></content> ID Date Data Source [id number] 09/13/2020 12:00:00 PM EST [facility] ([facility] [employer]) Name Value Range Interpretation Code Description Data Sonia e(s) Supporting Document(s) TP Reflex HPV ASCUS Laboratory test result [facility] ([facility] [employer] MANAGER) TP Reflex HPV ASCUS Laboratory test result [facility] ([facility] [employer] MANAGER) SPECIMEN PART------ A. Cervical, Endocervical, ThinPrep Pap (Carton Maker) CYTOLOGY HX-------- Date of Last Menstrual Period: 08/21/20 Other Information:Previous Normal Pap: 09/11/19 FINAL DIAGNOSIS---- INTERPRETATION: Negative for Intraepithelial Lesion or Malignancy. SPECIMEN ADEQUACY:Satisfactory for evaluation. Endocervical/transformation zone component present. Procedure Social History Code Duration Value Status Description Data Source(s ) Smoking 05/28/2021 12:00:00 AM EDT Patient has never smoked co mpleted Patient has never smoked [facility] ([facility] Smoking 09/13/2020 12:00:00 AM EST Patient has never smoked co mpleted Patient has never smoked [facility] ([employer]) Vital Signs ID Date Data Source UNK Name Value Range Interpretation Code Description Data Source(s) Body temperature 97.1 [degF] 97.1 [degF] [facility] ([facility] Body height 67.0 [in_i] 67.0 [in_i] [facility] ([facility] 5'7" [place] body weight 135 [lb_av] 135 [lb_av] [facility] T ([facility] Systolic blood pressure 114 mm[Hg] 114 mm[Hg] [facility] Body surface area Derived from formula 2.36 m2 2.36 m2 [facility] ([facility]) Diastolic blood pressure 73 mm[Hg] 73 mm[Hg] [facility] ([facility]) Heart rate 93 /min 93 /min [facility] ([facility]) Body temperature 98.7 [degF] 98.7 [degF] [facility] ([facility]) Body height 67 [in_i] 67 [in_i] [facility] ([facility]) 5'7" Body weight 287.25 [lb_av] 287.25 [lb_av] [facility] T ([facility]) Body mass index (BMI) [Ratio] 45.0 kg/m2 45.0 k g/m2 [facility] ([facility]) Homer body weight 135 [lb_av] 135 [lb_av] [facility] T ([facility]) Body weight 130.297 kg 130.297 kg [facility] ([facility]) Body height 67.0 [in_i] 67.0 [in_i] [facility] ([facility] 5'7" Body mass index (BMI) [Ratio] 44.2 kg/m2 44.2 k g/m2 [facility] ([facility] Body weight 282.12 [lb_av] 282.12 [lb_av] [facility] T ([facility] Oxygen saturation in Arterial blood by Pulse oximetry 98 % 98 % [facility] ([facility] [place] body weight 135 [lb_av] 135 [lb_av] [facility] T ([facility] Systolic blood pressure 129 mm[Hg] 129 mm[Hg] M [facility] ([facility] Diastolic blood pressure 87 mm[Hg] 87 mm[Hg] [facility] ([facility] Heart rate 99 /min 99 /min [facility] ([facility] Body temperature 97.0 [degF] 97.0 [degF] [facility] ([facility] Respiratory rate 17 /min 17 /min [facility] ( [facility] Heart rate 108 /min 108 /min [facility] ([facility] Systolic blood pressure 142 mm[Hg] 142 mm[Hg] M [facility] ([facility] Body height 67.0 [in_i] 67.0 [in_i] [facility] ([facility] 5'7" Diastolic blood pressure 104 mm[Hg] 104 mm[Hg] [facility] ([facility] Systolic blood pressure 149 mm[Hg] 149 mm[Hg] M [facility] ([facility] Diastolic blood pressure 107 mm[Hg] 107 mm[Hg] [facility] ([facility] Body temperature 98.8 [degF] 98.8 [degF] [facility] ([facility] Respiratory rate 18 /min 18 /min [facility] ( [facility] [place] body weight 135 [lb_av] 135 [lb_av] [facility] T ([facility] Oxygen saturation in Arterial blood by Pulse oximetry 98 % 98 % [facility] ([facility] Body weight 272.12 [lb_av] 272.12 [lb_av] [facility] T ([facility] Body mass index (BMI) [Ratio] 42.6 kg/m2 42.6 k g/m2 [facility] ([facility] Body weight 267.00 [lb_av] 267.00 [lb_av] [facility] T ([employer]) Body height 66.5 [in_i] 66.5 [in_i] [facility] ([facility] [employer]) 5'6.50" Diastolic blood pressure 82 mm[Hg] 82 mm[Hg] [facility] ([employer]) Body surface area Derived from formula 2.27 m2 2.27 m2 [facility] ([employer]) Systolic blood pressure 142 mm[Hg] 142 mm[Hg] M [facility] ([employer]) Body mass index (BMI) [Ratio] 42.4 kg/m2 42.4 k g/m2 [facility] ([employer]) Body height 67.0 [in_i] 67.0 [in_i] [facility] ([facility] 5'7" [place] body weight 135 [lb_av] 135 [lb_av] [facility] T ([facility] Body temperature 97.1 [degF] 97.1 [degF] [facility] ([facility]
[2021-08-06] MEDS ORDERED: LIDOCAINE 2% 100MG/5ML SDV (FOR ANES.) As Ordered ONE (08:14)
[2021-08-06] MEDS ORDERED: ESMOLOL INJ 100MG/10ML VIAL As Ordered ONE (08:14)
[2021-08-06] MEDS ORDERED: propofoL 500 MG/50 ML VIAL As Ordered ONE (08:14)
--- NOTE | 2021-08-06 08:33 | ROOR ---
Patient Name: Nishi Grossman Procedure Date: 08/06/2021 8:06 AM Date of : 1970 Age: 51 Room: [facility] Gender: Female Note Status: Finalized Procedure: Colonoscopy Indications: Screening for colorectal malignant neoplasm Providers: DO Medhat Castillo MD: Mary Ann Gracia NP Requesting Provider: Medicines: Propofol per Anesthesia Complications: No immediate complications. Procedure: Pre-Anesthesia Assessment: - Prior to the procedure, a History and Physical was performed, and patient medications and allergies were reviewed. The patient is competent. The risks and benefits of the procedure and the sedation options and risks were discussed with the patient. All questions were answered and informed consent was obtained. Patient identification and proposed procedure were verified by the physician, the nurse, the anesthesiologist and the pest control chemical technician in the endoscopy suite. Mental Status Examination: alert and oriented. Airway Examination: normal oropharyngeal airway and neck mobility. Respiratory Examination: clear to auscultation. CV Examination: normal. Prophylactic Antibiotics: The patient does not require prophylactic antibiotics. Prior Anticoagulants: The patient has taken no previous anticoagulant or antiplatelet agents. ASA Grade Assessment: II - A patient with mild systemic disease. After reviewing the risks and benefits, the patient was deemed in satisfactory condition to undergo the procedure. The anesthesia plan was to use monitored anesthesia care (MAC). Immediately prior to administration of medications, the patient was re-assessed for adequacy to receive sedatives. The heart rate, respiratory rate, oxygen saturations, blood pressure, adequacy of pulmonary ventilation, and response to care were monitored throughout the procedure. The physical status of the patient was re-assessed after the procedure. The Colonoscope was introduced through the anus and advanced to the cecum, identified by appendiceal orifice and ileocecal valve. The colonoscopy was performed without difficulty. The patient tolerated the procedure well. Findings: Non-bleeding internal hemorrhoids were found during retroflexion. The hemorrhoids were mild and Grade II (internal hemorrhoids that prolapse but reduce spontaneously). Two hyperplastic polyps were found in the descending colon and transverse colon. The polyps were 1 to 3 mm in size. These polyps were removed with a jumbo cold forceps. Resection and retrieval were complete. Estimated blood loss was minimal. Impression: - Non-bleeding internal hemorrhoids. - Two 1 to 3 mm polyps in the descending colon and in the transverse colon, removed with a jumbo cold forceps. Resected and retrieved. Recommendation: - Patient has a contact number available for emergencies. The signs and symptoms of potential delayed complications were discussed with the patient. Return to normal activities tomorrow. Written discharge instructions were provided to the patient. - Await pathology results. - Repeat colonoscopy in 3 - 5 years for surveillance based on pathology results. - Return to my office at appointment to be scheduled. Procedure Code(s): --- Professional --- 96255, Colonoscopy, flexible; with biopsy, single or multiple Diagnosis Code(s): --- Professional --- Z12.11, Encounter for screening for malignant neoplasm of colon K64.1, Second degree hemorrhoids K63.5, Polyp of colon CPT copyright 2019 [employer]. All rights reserved. The codes documented in this report are preliminary and upon spine surgeon review may be revised to meet current compliance requirements. Arsenio Tesfaye DO 08/06/2021 8:33:19 AM Electronically signed by Arsenio Tesfaye DO Number of Addenda: 0 Note Initiated On: 08/06/2021 8:06 AM Estimated Blood Loss: Estimated blood loss was minimal.
[2021-08-06 08:50] VITALS: BP 182/81
== END 2021-08-06 09:01 | disposition home or self-care (01) ==
LOC: M OPP 06:53
PROVIDERS: ATTEND Surgery
DX: K64.1 Second degree hemorrhoids (principal); D12.2 Benign neoplasm of ascending colon; D12.3 Benign neoplasm of transverse colon; Z12.11 Encounter for screening for malignant neoplasm of colon; Z79.82 Long term (current) use of aspirin; Z79.4 Long term (current) use of insulin

== ENCOUNTER 2021-08-22 10:30 | Outpatient (CLI) | payer OTHER ==
[~2021-08-22] VITALS: Ht 170.2 cm; Wt 128.0 kg
[~2021-08-22 10:30] MED LIST changes: +ALBUTEROL 90 MCG/ACT 8GM HFA INHALER INH PRN; +ALBUTEROL SULFATE 2.5 MG/0.5 ML INH NEB SOLN INH PRN; +EPINEPHrine INJ 1 MG/ML 1ML AMP IM PRN; -NS 1,000 ML IV ONE; +NS 1,000 ML IV SCH; +diphenhydrAMINE 50MG/ML VIAL (J1200) IV PRN; +methylPREDNISolone 125MG 2ML VIAL IV PRN
[2021-08-22] MEDS ORDERED: CASIRIVIMAB (REGN10933) 600 MG, IMDEVIMAB (REGN10987) 600 MG in NS 250 ML IV ONE (11:15)
[2021-08-22 11:25] VITALS: BP 148/74
[2021-08-22 11:55] VITALS: BP 129/69
[2021-08-22 12:25] VITALS: BP 130/71
[2021-08-22 13:25] VITALS: BP 122/77
== END 2021-08-22 13:25 | disposition home or self-care (01) ==
LOC: M OPCLI4PR 10:30
PROVIDERS: ATTEND Nurse Practitioner Family
DX: U07.1 COVID-19 (principal)

== ENCOUNTER 2021-11-14 01:48 | Inpatient (IN) | payer OTHER ==
[~2021-11-14] VITALS: Ht 167.6 cm; Wt 140.8 kg
[~2021-11-14 01:48] MED LIST changes: -ALBUTEROL 90 MCG/ACT 8GM HFA INHALER INH PRN; -ALBUTEROL SULFATE 2.5 MG/0.5 ML INH NEB SOLN INH PRN; -EPINEPHrine INJ 1 MG/ML 1ML AMP IM PRN; -NS 1,000 ML IV SCH; -diphenhydrAMINE 50MG/ML VIAL (J1200) IV PRN; -methylPREDNISolone 125MG 2ML VIAL IV PRN
[2021-11-14 03:08] LABS: BASO # 0.1 10^3/uL (0.0-0.2); BASO % 0.6 % (0.0-1.0); EOS # 0.9 10^3/uL (0.0-0.5); EOS % 8.7 % (0.0-3.0); HEMATOCRIT 40.4 % (36.0-47.0); HEMOGLOBIN 12.8 g/dl (12.0-15.5); LYMPH # 2.2 10^3/uL (1.5-5.0); LYMPH % 21.6 % (24.0-44.0); MEAN CORPUSCULAR HEMOGLOBIN 29.2 pg (27.0-33.0); MEAN CORPUSCULAR HGB CONC 31.7 g/dl (32.0-36.5); MEAN CORPUSCULAR VOLUME 92.2 fl (80.0-96.0); MONO # 0.7 10^3/uL (0.0-0.8); MONO % 7.3 % (2.0-8.0); NEUTROPHILS # 6.3 10^3/uL (1.5-8.5); NEUTROPHILS % 61.5 % (36.0-66.0); PLATELET COUNT, AUTOMATED 278 10^3/uL (150-450); RED BLOOD COUNT 4.38 10^6/uL (4.00-5.40); WHITE BLOOD COUNT 10.2 10^3/uL (4.0-10.0)
[2021-11-14 03:14] LABS: ACETONE/KETONE 1.99 MG/DL (<2.81); ALBUMIN 3.8 GM/DL (3.2-5.2); BILIRUBIN,TOTAL 0.3 MG/DL (0.2-1.0); CALCIUM LEVEL 9.9 MG/DL (8.5-10.1); CREATININE FOR GFR 1.25 MG/DL (0.55-1.30); GLOMERULAR FILTRATION RATE 48.1 (>51); POTASSIUM SERUM 4.6 MEQ/L (3.5-5.1); TOTAL PROTEIN 7.6 GM/DL (6.4-8.2)
[2021-11-14] MEDS ORDERED: NS 1,000 ML IV ONE (03:25)
[2021-11-14] MEDS ORDERED: ISOVUE-370 76% 100ML VIAL As Ordered ONE (03:28)
[2021-11-14] MEDS ORDERED: PIPERACILLIN/TAZOBACTAM SOD 3.375 GM in D5W MINI-BAG PLUS 50 ML IV ONE (05:35)
[2021-11-14] MEDS ORDERED: hydrALAZINE 20MG/ML 1ML VIAL (J0360 PER 20MG) IV STA (06:10)
[2021-11-14] MEDS ORDERED: LEVEMIR (INSULIN DETEMIR) 1 UNITS/0.01ML SC SCH (07:00)
[2021-11-14] MEDS ORDERED: METF10004 PO (07:41)
[2021-11-14] MEDS ORDERED: HOME MED LIST COMPLETE! XX SCH (07:45)
[2021-11-14 07:50] LABS: RSV AMPLIFICATION NEGATIVE (NEGATIVE)
[2021-11-14] MEDS ORDERED: DEXTROSE 50% 50 ML SYRINGE IV PRN (08:25)
[2021-11-14] MEDS ORDERED: MOM 30ML SUSPENSION UDC PO PRN (08:25)
[2021-11-14] MEDS ORDERED: GLUCOSE 4GM CHEW TABLET PO PRN (08:25)
[2021-11-14] MEDS ORDERED: GLUCAGON INJ 1MG VIAL SC PRN (08:25)
[2021-11-14] MEDS ORDERED: MAALOX 30 ML SUSP *UDC PO PRN (08:25)
[2021-11-14] MEDS ORDERED: D5W/0.9% SODIUM CHLORIDE 1,000 ML IV SCH (08:30)
[2021-11-14] MEDS ORDERED: LABETALOL 100MG/20ML VIAL IV ONE (08:45)
[2021-11-14] MEDS: LEVEMIR (INSULIN DETEMIR) 1 UNITS/0.01ML SC SCH ×2 (09:00→22:29)
[2021-11-14] MEDS: ROSUVASTATIN 10 MG TAB (CRESTOR) PO SCH (09:00)
[2021-11-14] MEDS: hydroCHLOROthiazide 12.5 MG CAPSULE PO SCH (09:00)
[2021-11-14] MEDS: HumaLOG INSULIN (NovoLOG) PER UNIT SC SCH ×3 (12:00→17:50)
[2021-11-14] MEDS: PIPERACILLIN/TAZOBACTAM SOD 4.5 GM in D5W MINI-BAG PLUS 50 ML IV SCH ×3 (12:18→23:57)
[2021-11-14] MEDS ORDERED: LABETALOL 200 MG TAB PO STA (13:02)
[2021-11-14] MEDS ORDERED: MORPHINE 4 MG/ML 1ML VIAL/SYRINGE (J2270) IV PRN (13:05)
[2021-11-14 14:17] VITALS: BP 148/81
[2021-11-14] MEDS: NS 1,000 ML IV SCH ×2 (14:30→22:29)
[2021-11-14 14:40] VITALS: BP 151/60
[2021-11-14] MEDS ORDERED: BUPIVACAINE HCL 0.25% 30ML VIAL As Ordered ONE (16:41)
[2021-11-14] MEDS ORDERED: fentaNYL 100 MCG/2 ML INJECTION As Ordered ONE ×2 (16:44→20:27)
[2021-11-14] MEDS ORDERED: ROCURONIUM BROMIDE 50 MG/5 ML VIAL As Ordered ONE ×2 (16:44→18:35)
[2021-11-14] MEDS ORDERED: dexameTHASONE 4 MG/ML 1ML VIAL (J1100 PER 1MG) As Ordered ONE (16:44)
[2021-11-14] MEDS ORDERED: propofoL 200 MG/20 ML VIAL As Ordered ONE (16:44)
[2021-11-14] MEDS ORDERED: MIDAZOLAM INJ 2MG/2ML VIAL (J2250 PER 1MG) As Ordered ONE (16:44)
[2021-11-14] MEDS ORDERED: LIDOCAINE 2% 100MG/5ML SDV (FOR ANES.) As Ordered ONE (16:44)
[2021-11-14] MEDS ORDERED: ONDANSETRON 4MG/2ML VIAL As Ordered ONE (16:45)
[2021-11-14] MEDS ORDERED: SCOPOLAMINE 1MG TRANSDERMAL PATCH As Ordered ONE (17:46)
[2021-11-14] MEDS ORDERED: ZOSYN 3.375GM VIAL As Ordered ONE (18:27)
[2021-11-14] MEDS ORDERED: ACETAMINOPHEN 1000MG 100ML IV BTL (OFIRMEV) (J0131 PER 10MG) As Ordered ONE (19:56)
[2021-11-14] MEDS ORDERED: SUGAMMADEX SODIUM 500 MG/5 ML VIAL (BRIDION) As Ordered ONE (20:14)
[2021-11-14] MEDS ORDERED: KETOROLAC 60MG 2ML VIAL As Ordered ONE (20:14)
[2021-11-14] MEDS ORDERED: ONDANSETRON 4MG/2ML VIAL IV PRN ×2 (20:50→21:50)
[2021-11-14] MEDS ORDERED: LR 1,000 ML IV SCH (20:50)
[2021-11-14] MEDS ORDERED: fentaNYL 100 MCG/2 ML INJECTION IV PRN (20:50)
[2021-11-14] MEDS ORDERED: PERCOCET 5MG/325MG TAB PO PRN (20:50)
[2021-11-14] MEDS ORDERED: NORCO, ANEXSIA 5/325MG TABLET (HYDROcodone/ACETAMINOPHEN) PO PRN (20:50)
[2021-11-14] MEDS ORDERED: HumaLOG INSULIN (NovoLOG) PER UNIT SC SCH (21:00)
[2021-11-14] MEDS ORDERED: METOCLOPRAMIDE INJ 10MG/2ML VIAL (J2765 PER 1) As Ordered ONE (21:13)
[2021-11-14] MEDS ORDERED: PROMETHAZINE INJ 25 MG/ML VIAL (J2550) IV PRN (21:15)
[2021-11-14] MEDS ORDERED: METOCLOPRAMIDE INJ 10MG/2ML VIAL (J2765 PER 1) IV PRN (21:30)
[2021-11-14 21:59] VITALS: BP 155/110
[2021-11-14 22:43] VITALS: BP 163/105
[2021-11-14] MEDS ORDERED: LABETALOL 200 MG TAB PO ONE (23:10)
[2021-11-14 23:30] VITALS: BP 165/108
[2021-11-15] VITALS (7 sets, daily range): BP systolic 145–163; BP diastolic 72–102
[2021-11-15] MEDS ORDERED: **hydrALAZINE HCL** 25 MG TAB PO ONE (02:30)
[2021-11-15] MEDS: ACETAMINOPHEN TAB 650MG DOSE (2X325MG) PO PRN ×4 (03:20→23:06)
[2021-11-15] MEDS: NS 1,000 ML IV SCH ×3 (07:00→19:14)
[2021-11-15] MEDS: PIPERACILLIN/TAZOBACTAM SOD 4.5 GM in D5W MINI-BAG PLUS 50 ML IV SCH ×2 (07:01→12:15)
[2021-11-15 08:03] LABS: BASO % 0.2 % (0.0-1.0); HEMATOCRIT 38.4 % (36.0-47.0); LYMPH # 0.9 10^3/uL (1.5-5.0); LYMPH % 6.6 % (24.0-44.0); MEAN CORPUSCULAR HEMOGLOBIN 29.3 pg (27.0-33.0); MEAN CORPUSCULAR HGB CONC 31.3 g/dl (32.0-36.5); MEAN CORPUSCULAR VOLUME 93.7 fl (80.0-96.0); MONO # 0.5 10^3/uL (0.0-0.8); MONO % 3.4 % (2.0-8.0); NEUTROPHILS # 11.7 10^3/uL (1.5-8.5); NEUTROPHILS % 89.3 % (36.0-66.0); PLATELET COUNT, AUTOMATED 284 10^3/uL (150-450); WHITE BLOOD COUNT 13.1 10^3/uL (4.0-10.0)
[2021-11-15] MEDS ORDERED: LEVEMIR (INSULIN DETEMIR) 1 UNITS/0.01ML SC SCH (09:00)
[2021-11-15 09:45] LABS: ALBUMIN 3.4 GM/DL (3.2-5.2); BILIRUBIN,TOTAL 0.5 MG/DL (0.2-1.0); CALCIUM LEVEL 8.8 MG/DL (8.5-10.1); CREATININE FOR GFR 1.85 MG/DL (0.55-1.30); GLOMERULAR FILTRATION RATE 30.6 (>51); TOTAL PROTEIN 7.6 GM/DL (6.4-8.2)
[2021-11-15] MEDS: HumaLOG INSULIN (NovoLOG) PER UNIT SC SCH ×2 (09:59→12:15)
[2021-11-15] MEDS: ROSUVASTATIN 10 MG TAB (CRESTOR) PO SCH (10:00)
[2021-11-15] MEDS: ASPIRIN 81 MG CHEW TABLET PO SCH (10:00)
[2021-11-15] MEDS: hydroCHLOROthiazide 12.5 MG CAPSULE PO SCH (10:00)
[2021-11-15 10:58] LABS: ACETONE/KETONE 13.07 MG/DL (<2.81)
[2021-11-15] MEDS ORDERED: NS 1,000 ML IV ONE (11:00)
[2021-11-15] MEDS ORDERED: HumaLOG INSULIN (NovoLOG) PER UNIT SC ONE (12:45)
[2021-11-15 14:10] LABS: CALCIUM LEVEL 8.3 MG/DL (8.5-10.1); CREATININE FOR GFR 1.86 MG/DL (0.55-1.30); GLOMERULAR FILTRATION RATE 30.4 (>51); PHOSPHORUS LEVEL 3.2 MG/DL (2.5-4.9); POTASSIUM SERUM 4.6 MEQ/L (3.5-5.1)
[2021-11-15] MEDS ORDERED: INSULIN REGULAR IN 0.9 % NACL 100 UNIT in IV 1 EA IV SCH ×4 (14:25→15:00)
[2021-11-15] MEDS ORDERED: HumuLIN R (REGULAR) INSULIN (NovoLIN R) **100U/ML** PER UNIT IV STA (14:50)
[2021-11-15] MEDS ORDERED: HumaLOG INSULIN (NovoLOG) PER UNIT SC SCH (17:30)
[2021-11-15 19:09] LABS: CALCIUM LEVEL 8.2 MG/DL (8.5-10.1); CREATININE FOR GFR 1.86 MG/DL (0.55-1.30); GLOMERULAR FILTRATION RATE 30.4 (>51); MAGNESIUM LEVEL 2.1 MG/DL (1.8-2.4); PHOSPHORUS LEVEL 3.4 MG/DL (2.5-4.9); POTASSIUM SERUM 4.4 MEQ/L (3.5-5.1)
[2021-11-15] MEDS: INSULIN IV RATE CHANGE DOCUMENTATION ML/HR XX SCH ×2 (20:00→21:14)
[2021-11-15] MEDS ORDERED: LEVEMIR (INSULIN DETEMIR) 1 UNITS/0.01ML SC ONE (21:50)
[2021-11-15 22:24] LABS: CALCIUM LEVEL 8.4 MG/DL (8.5-10.1); CREATININE FOR GFR 1.74 MG/DL (0.55-1.30); GLOMERULAR FILTRATION RATE 32.8 (>51); MAGNESIUM LEVEL 2.1 MG/DL (1.8-2.4); PHOSPHORUS LEVEL 3.5 MG/DL (2.5-4.9); POTASSIUM SERUM 4.2 MEQ/L (3.5-5.1)
[2021-11-16] VITALS: BP 145/78
[2021-11-16] MEDS: NS 1,000 ML IV SCH ×2 (00:39→07:50)
[2021-11-16 04:00] VITALS: BP 145/80
[2021-11-16 05:06] LABS: BASO # 0.1 10^3/uL (0.0-0.2); BASO % 0.6 % (0.0-1.0); EOS # 0.3 10^3/uL (0.0-0.5); EOS % 2.4 % (0.0-3.0); HEMATOCRIT 35.6 % (36.0-47.0); HEMOGLOBIN 11.2 g/dl (12.0-15.5); LYMPH # 2.1 10^3/uL (1.5-5.0); MEAN CORPUSCULAR HEMOGLOBIN 29.3 pg (27.0-33.0); MEAN CORPUSCULAR HGB CONC 31.5 g/dl (32.0-36.5); MEAN CORPUSCULAR VOLUME 93.2 fl (80.0-96.0); MONO # 0.8 10^3/uL (0.0-0.8); MONO % 7.3 % (2.0-8.0); NEUTROPHILS # 7.4 10^3/uL (1.5-8.5); NEUTROPHILS % 69.3 % (36.0-66.0); PLATELET COUNT, AUTOMATED 282 10^3/uL (150-450); RED BLOOD COUNT 3.82 10^6/uL (4.00-5.40); WHITE BLOOD COUNT 10.7 10^3/uL (4.0-10.0)
[2021-11-16 05:31] LABS: CALCIUM LEVEL 8.7 MG/DL (8.5-10.1); CREATININE FOR GFR 1.42 MG/DL (0.55-1.30); GLOMERULAR FILTRATION RATE 41.5 (>51); MAGNESIUM LEVEL 2.2 MG/DL (1.8-2.4)
[2021-11-16] MEDS: ACETAMINOPHEN TAB 650MG DOSE (2X325MG) PO PRN (06:31)
[2021-11-16 07:20] VITALS: BP 180/86
[2021-11-16 07:24] VITALS: BP 172/83
[2021-11-16] MEDS ORDERED: HumaLOG INSULIN (NovoLOG) PER UNIT SC SCH ×4 (07:30)
[2021-11-16] MEDS ORDERED: LABETALOL 200 MG TAB PO ONE (07:35)
[2021-11-16 07:55] VITALS: BP 172/83
[2021-11-16] MEDS: hydroCHLOROthiazide 12.5 MG CAPSULE PO SCH (08:28)
[2021-11-16] MEDS: ROSUVASTATIN 10 MG TAB (CRESTOR) PO SCH (08:28)
[2021-11-16] MEDS: ASPIRIN 81 MG CHEW TABLET PO SCH (08:28)
[2021-11-16] MEDS ORDERED: LEVEMIR (INSULIN DETEMIR) 1 UNITS/0.01ML SC SCH ×4 (09:00)
[2021-11-16] MEDS ORDERED: LABE200T32 PO (09:25)
[2021-11-16 09:28] VITALS: BP 126/57
== END 2021-11-16 09:52 | disposition home or self-care (01) | DRG 419 ==
LOC: M ED 01:48 → M ED INP 08:21 → ENRESERV 10:25 → M MS5PR 14:35 → M ICU 11-15 15:55
PROVIDERS: ADMIT Family Medicine; ATTEND Family Medicine
PROC: 0FT44ZZ Resection of Gallbladder, Percutaneous Endoscopic Approach (ICD-10-PCS; principal; 2021-11-14 15:30)
DX: K80.62 Calculus of gallbladder and bile duct with acute cholecystitis without obstruction (principal); E11.22 Type 2 diabetes mellitus with diabetic chronic kidney disease; E78.00 Pure hypercholesterolemia, unspecified; I10 Essential (primary) hypertension; E66.01 Morbid (severe) obesity due to excess calories; N18.30 Chronic kidney disease, stage 3 unspecified; I16.0 Hypertensive urgency; Z20.822 Contact with and (suspected) exposure to COVID-19; Z79.82 Long term (current) use of aspirin; Z79.4 Long term (current) use of insulin; Z79.899 Other long term (current) drug therapy; Z86.16 Personal history of COVID-19

== ENCOUNTER → 2021-12-09 | Outpatient (REF) | payer OTHER ==
[~2021-12-09] MED LIST changes: +LABE200T3 PO; +METF10004 PO
[2021-12-09 18:08] LABS: CREATININE,RANDOM URINE 78.3 MG/DL; TOTAL PROTEIN,RANDOM URINE 172.2 MG/DL (0.0-12.0)
== END ==
LOC: M LAB REF 17:16
PROVIDERS: ATTEND Internal Medicine Nephrology
DX: N18.31 Chronic kidney disease, stage 3a (principal); E11.22 Type 2 diabetes mellitus with diabetic chronic kidney disease

== ENCOUNTER → 2021-12-30 | Outpatient (CLI) | payer OTHER ==
[2021-12-30 09:33] LABS: HEMOGLOBIN A1c 7.5 %
[2021-12-30 10:19] LABS: MAU/CREAT RATIO 1718.9 MCG/MG (0.0-30.0)
== END ==
LOC: M LAB 07:59
PROVIDERS: ATTEND Nurse Practitioner Family
DX: E11.69 Type 2 diabetes mellitus with other specified complication (principal)

== ENCOUNTER 2022-01-17 18:11 | Emergency (ER) | payer OTHER ==
[~2022-01-17] VITALS: Ht 170.2 cm; Wt 138.1 kg
[2022-01-17 19:51] VITALS: BP 130/70
== END 2022-01-17 19:54 | disposition home or self-care (01) ==
LOC: M ED 18:11
DX: S60.051A Contusion of right little finger without damage to nail, initial encounter (principal); W22.8XXA Striking against or struck by other objects, initial encounter; Y92.009 Unspecified place in unspecified non-institutional (private) residence as the place of occurrence of the external cause; Y93.9 Activity, unspecified; Y99.9 Unspecified external cause status; E11.9 Type 2 diabetes mellitus without complications; I12.9 Hypertensive chronic kidney disease with stage 1 through stage 4 chronic kidney disease, or unspecified chronic kidney disease; Z79.4 Long term (current) use of insulin; Z79.899 Other long term (current) drug therapy

== ENCOUNTER → 2022-04-01 | Outpatient (CLI) | payer OTHER | LOC: M WHC 14:22 | PROVIDERS: ATTEND Obstetrics & Gynecology | DX: Z12.31 Encounter for screening mammogram for malignant neoplasm of breast (principal) ==

== ENCOUNTER 2022-05-09 20:46 | Emergency (ER) | payer OTHER ==
[~2022-05-09] VITALS: Ht 170.2 cm; Wt 136.8 kg
[~2022-05-09 20:46] MED LIST changes: -LABE200T3 PO; +LABE200T5 PO
[2022-05-09 20:47] VITALS: BP 140/74
[2022-05-10] MEDS ORDERED: OLOP5DRO16 OU (14:06)
[2022-05-10] MEDS ORDERED: LISI30TA4 PO (14:06)
[2022-05-10] MEDS ORDERED: MAGN500T12 PO (14:06)
[2022-05-10] MEDS ORDERED: NYST10006 TOP (14:06)
[2022-05-10] MEDS ORDERED: GABA-282 PO (14:06)
[2022-05-10] MEDS ORDERED: DULA3PEN SQ (14:06)
[2022-05-10] MEDS ORDERED: TRAM37.53 PO (14:06)
== END 2022-05-09 22:34 | disposition left against medical advice (07) ==
LOC: M ED 20:46
DX: Z53.21 Procedure and treatment not carried out due to patient leaving prior to being seen by health care provider (principal)

== ENCOUNTER 2022-05-10 07:43 | Inpatient (IN) | payer OTHER ==
[~2022-05-10] VITALS: Ht 170.2 cm; Wt 144.5 kg
[2022-05-10 09:29] LABS: BASO % 0.2 % (0.0-1.0); EOS # 0.3 10^3/uL (0.0-0.5); EOS % 3.5 % (0.0-3.0); HEMATOCRIT 38.1 % (36.0-47.0); HEMOGLOBIN 12.1 g/dl (12.0-15.5); LYMPH # 0.6 10^3/uL (1.5-5.0); MEAN CORPUSCULAR HEMOGLOBIN 29.3 pg (27.0-33.0); MEAN CORPUSCULAR HGB CONC 31.8 g/dl (32.0-36.5); MEAN CORPUSCULAR VOLUME 92.3 fl (80.0-96.0); MONO # 0.9 10^3/uL (0.0-0.8); MONO % 10.2 % (2.0-8.0); NEUTROPHILS # 6.8 10^3/uL (1.5-8.5); NEUTROPHILS % 78.8 % (36.0-66.0); RED BLOOD COUNT 4.13 10^6/uL (4.00-5.40); WHITE BLOOD COUNT 8.7 10^3/uL (4.0-10.0)
[2022-05-10 10:11] LABS: ALBUMIN 3.3 GM/DL (3.2-5.2); BILIRUBIN,DIRECT 0.1 MG/DL (0.0-0.2); BILIRUBIN,TOTAL 0.6 MG/DL (0.2-1.0); CALCIUM LEVEL 9.2 MG/DL (8.5-10.1); CREATININE FOR GFR 1.93 MG/DL (0.55-1.30); POTASSIUM SERUM 5.7 MEQ/L (3.5-5.1)
[2022-05-10 10:27] LABS: SQUAMOUS EPITHELIAL CELL URINE LARGE AMOUNT /hpf (SMALL AMT)
[2022-05-10 10:29] LABS: BACTERIA, URINE LARGE AMOUNT; RBC, URINE 0-1 /hpf (0-3); YEAST, URINE SMALL AMOUNT
[2022-05-10] MEDS ORDERED: SODIUM CHLORIDE IV ONE (10:50)
[2022-05-10] MEDS ORDERED: HumuLIN R (REGULAR) INSULIN (NovoLIN R) **100U/ML** PER UNIT IV ONE ×2 (10:55→15:00)
[2022-05-10] MEDS ORDERED: ONDANSETRON 4MG 2ML VIAL IV ONE (12:10)
[2022-05-10] MEDS ORDERED: NS 1,000 ML IV ONE ×4 (12:15→18:30)
[2022-05-10] MEDS ORDERED: MORPHINE 2 MG/ML 1ML VIAL IV ONE ×2 (12:45→14:45)
[2022-05-10 13:17] LABS: RSV AMPLIFICATION NEGATIVE (NEGATIVE)
[2022-05-10] MEDS ORDERED: GABA-282 PO (14:06)
[2022-05-10] MEDS ORDERED: TRAM37.53 PO (14:06)
[2022-05-10] MEDS ORDERED: NYST10006 TOP (14:06)
[2022-05-10] MEDS ORDERED: OLOP5DRO16 OU (14:06)
[2022-05-10] MEDS ORDERED: LISI30TA4 PO (14:06)
[2022-05-10] MEDS ORDERED: DULA3PEN SQ (14:06)
[2022-05-10] MEDS ORDERED: MAGN500T12 PO (14:06)
[2022-05-10] MEDS ORDERED: HOME MED LIST COMPLETE! XX SCH (14:10)
[2022-05-10 14:44] LABS: VENOUS BASE EXCESS -3.2 (-2.0-2.0); VENOUS HCO3 23.2 MEQ/L (23.0-27.0); VENOUS O2 SATURATION 81.2 % (60.0-80.0); VENOUS PARTIAL PRESSURE CO2 47.1 mmHg (38.0-50.0); VENOUS PARTIAL PRESSURE O2 50.5 mmHg (30.0-50.0); VENOUS STANDARD HCO3 21.5 MEQ/L; VENOUS TOTAL CO2 24.6 MEQ/L (24.0-28.0)
[2022-05-10 15:29] LABS: ACETONE/KETONE 6.64 MG/DL (<2.81)
[2022-05-10] MEDS ORDERED: INSULIN REGULAR IN 0.9 % NACL 100 UNIT in IV 1 EA IV SCH ×4 (18:35→22:15)
[2022-05-10] MEDS ORDERED: INSULIN IV RATE CHANGE DOCUMENTATION ML/HR XX SCH ×2 (18:35→22:15)
[2022-05-10] MEDS ORDERED: MORPHINE 2 MG/ML 1ML VIAL IV PRN (20:50)
[2022-05-10] MEDS ORDERED: NS 1,000 ML IV SCH (21:05)
[2022-05-10] MEDS: HYDROMORPHONE HCL 0.5 MG/ 0.5 ML SYRINGE (J1170 PER 1) IV PRN (22:40)
[2022-05-10] MEDS: ENOXAPARIN 40MG/0.4ML SYRINGE (J1650 PER 10MG) SC SCH (22:50)
[2022-05-10 23:40] VITALS: BP 101/60
[2022-05-11] VITALS (21 sets, daily range): BP systolic 94–137; BP diastolic 50–81; O2SAT 94
[2022-05-11] MEDS ORDERED: DEXTROSE 50% 50 ML SYRINGE IV PRN (01:45)
[2022-05-11] MEDS ORDERED: GLUCAGON INJ 1MG VIAL SC PRN (01:45)
[2022-05-11] MEDS ORDERED: GLUCOSE 4GM CHEW TABLET PO PRN (01:45)
[2022-05-11] MEDS: HYDROMORPHONE HCL 0.5 MG/ 0.5 ML SYRINGE (J1170 PER 1) IV PRN ×5 (02:04→16:22)
[2022-05-11] MEDS: NS 1,000 ML IV SCH ×3 (03:49→23:30)
[2022-05-11 05:23] LABS: HEMATOCRIT 34.5 % (36.0-47.0); HEMOGLOBIN 10.4 g/dl (12.0-15.5); MEAN CORPUSCULAR HEMOGLOBIN 28.8 pg (27.0-33.0); MEAN CORPUSCULAR HGB CONC 30.1 g/dl (32.0-36.5); MEAN CORPUSCULAR VOLUME 95.6 fl (80.0-96.0); PLATELET COUNT, AUTOMATED 283 10^3/uL (150-450); RED BLOOD COUNT 3.61 10^6/uL (4.00-5.40); WHITE BLOOD COUNT 7.7 10^3/uL (4.0-10.0)
[2022-05-11 05:58] LABS: ALBUMIN 2.9 GM/DL (3.2-5.2); BILIRUBIN,TOTAL 0.4 MG/DL (0.2-1.0); CREATININE FOR GFR 2.59 MG/DL (0.55-1.30); GLOMERULAR FILTRATION RATE 20.7 (>51); POTASSIUM SERUM 5.4 MEQ/L (3.5-5.1); TOTAL PROTEIN 6.2 GM/DL (6.4-8.2)
[2022-05-11] MEDS: INSULIN LISPRO (NovoLOG) PER UNIT SC SCH ×4 (06:16→22:17)
[2022-05-11] MEDS ORDERED: FAMOTIDINE 20 MG TAB PO SCH (09:00)
[2022-05-11] MEDS ORDERED: SODIUM BICARBONATE 8.4% INJ 50 ML SYRINGE IV STA ×2 (09:03→11:06)
[2022-05-11] MEDS ORDERED: HumuLIN R (REGULAR) INSULIN (NovoLIN R) **100U/ML** PER UNIT SC ONE (09:05)
[2022-05-11] MEDS ORDERED: ceFAZolin SOD 2 GM in IV 1 EA IV ONE ×2 (09:55→10:45)
[2022-05-11 10:04] LABS: ABG BASE EXCESS -5.1 (-2.0-2.0); ABG O2 SATURATION 94.7 % (95.0-99.0); ABG PARTIAL PRESSURE CO2 49.8 mmHg (35.0-45.0); ABG PARTIAL PRESSURE O2 83.4 mmHg (75.0-100.0); ABG STANDARD HCO3 20.2 MEQ/L (22.0-26.0); ABG TOTAL CO2 23.5 MEQ/L (22.0-29.0); ABG pH (ARTERIAL) 7.263 UNITS (7.350-7.450)
[2022-05-11 10:11] LABS: ALBUMIN 2.8 GM/DL (3.2-5.2); BILIRUBIN,TOTAL 0.3 MG/DL (0.2-1.0); CALCIUM LEVEL 8.2 MG/DL (8.5-10.1); CREATININE FOR GFR 2.64 MG/DL (0.55-1.30); GLOMERULAR FILTRATION RATE 20.2 (>51); POTASSIUM SERUM 5.3 MEQ/L (3.5-5.1); TOTAL PROTEIN 6.5 GM/DL (6.4-8.2)
[2022-05-11] MEDS ORDERED: ceFAZolin SOD 1 GM in D5W MINI-BAG PLUS 50 ML IV ONE (10:45)
[2022-05-11] MEDS: ENOXAPARIN 40MG/0.4ML SYRINGE (J1650 PER 10MG) SC SCH ×2 (11:26→22:51)
[2022-05-11] MEDS: PANTOPRAZOLE 40MG VIAL IV SCH (11:27)
[2022-05-11] MEDS: NYSTATIN 500,000 U/5 ML SUSP UDC SS SCH ×3 (13:00→22:46)
[2022-05-11] MEDS ORDERED: ceFAZolin 1GM VIAL (J0690 PER 500MG) As Ordered ONE (17:53)
[2022-05-11] MEDS ORDERED: SCOPOLAMINE 1MG TRANSDERMAL PATCH TOP STA (17:54)
[2022-05-11] MEDS ORDERED: ceFAZolin 2 GM/D5W 50 ML IV BAG (J0690 PER 500MG) As Ordered ONE (17:54)
[2022-05-11] MEDS ORDERED: INSULIN LISPRO (NovoLOG) PER UNIT SC ONE (17:55)
[2022-05-11] MEDS ORDERED: BUPIVACAINE LIPOSOME/PF 1.3% 20ML VIAL (13.3MG/ML)(EXPAREL) As Ordered ONE ×2 (18:00→18:01)
[2022-05-11] MEDS ORDERED: LIDOCAINE 1% MDV 20ML VIAL As Ordered ONE (18:00)
[2022-05-11] MEDS ORDERED: BUPIVACAINE HCL 0.25% 10ML VIAL As Ordered ONE ×2 (18:00→18:01)
[2022-05-11] MEDS ORDERED: MIDAZOLAM INJ 2MG/2ML VIAL (J2250 PER 1MG) As Ordered ONE (18:57)
[2022-05-11] MEDS ORDERED: ROCURONIUM BROMIDE 50 MG/5 ML VIAL As Ordered ONE (18:57)
[2022-05-11] MEDS ORDERED: KETOROLAC 60MG 2ML VIAL As Ordered ONE (18:57)
[2022-05-11] MEDS ORDERED: LIDOCAINE 2% 100MG/5ML SDV (FOR ANES.) As Ordered ONE (18:57)
[2022-05-11] MEDS ORDERED: propofoL 200 MG/20 ML VIAL As Ordered ONE (18:57)
[2022-05-11] MEDS ORDERED: METOCLOPRAMIDE INJ 10MG/2ML VIAL (J2765 PER 1) As Ordered ONE (18:57)
[2022-05-11] MEDS ORDERED: fentaNYL 250 MCG/5 ML INJECTION As Ordered ONE (18:57)
[2022-05-11] MEDS ORDERED: ONDANSETRON 4MG 2ML VIAL As Ordered ONE (18:57)
[2022-05-11] MEDS ORDERED: SUGAMMADEX SODIUM 500 MG/5 ML VIAL (BRIDION) As Ordered ONE (18:57)
[2022-05-11] MEDS ORDERED: dexameTHASONE 4 MG/ML 1ML VIAL (J1100 PER 1MG) As Ordered ONE (18:57)
[2022-05-11] MEDS ORDERED: PHENYLEPHRINE 10MG/ML 1ML VIAL (J2370 PER 1) As Ordered ONE (19:38)
[2022-05-11] MEDS ORDERED: CALCIUM CHLORIDE 10% 1 GM/10 ML SYR As Ordered ONE (19:59)
[2022-05-11] MEDS ORDERED: fentaNYL 100 MCG/2 ML INJECTION As Ordered ONE (20:23)
[2022-05-11] MEDS ORDERED: fentaNYL 100 MCG/2 ML INJECTION IV PRN (21:25)
[2022-05-11] MEDS ORDERED: HYDROMORPHONE HCL 0.5 MG/ 0.5 ML SYRINGE (J1170 PER 1) IV PRN (21:25)
[2022-05-11] MEDS ORDERED: oxyCODONE 5MG TAB PO PRN (21:25)
[2022-05-11] MEDS ORDERED: LR 1,000 ML IV SCH (21:25)
[2022-05-12] VITALS (33 sets, daily range): BP systolic 136–155; BP diastolic 61–80; O2SAT 92–97
[2022-05-12] MEDS: INSULIN LISPRO (NovoLOG) PER UNIT SC SCH ×5 (06:23→21:28)
[2022-05-12] MEDS: ENOXAPARIN 40MG/0.4ML SYRINGE (J1650 PER 10MG) SC SCH (08:16)
[2022-05-12] MEDS: PANTOPRAZOLE 40MG VIAL IV SCH (08:16)
[2022-05-12] MEDS: NS 1,000 ML IV SCH (08:16)
[2022-05-12] MEDS: NYSTATIN 500,000 U/5 ML SUSP UDC SS SCH ×5 (08:19→21:28)
[2022-05-12 08:44] LABS: HEMATOCRIT 33.3 % (36.0-47.0); HEMOGLOBIN 9.9 g/dl (12.0-15.5); MEAN CORPUSCULAR HGB CONC 29.7 g/dl (32.0-36.5); MEAN CORPUSCULAR VOLUME 97.7 fl (80.0-96.0); PLATELET COUNT, AUTOMATED 250 10^3/uL (150-450); RED BLOOD COUNT 3.41 10^6/uL (4.00-5.40); WHITE BLOOD COUNT 6.1 10^3/uL (4.0-10.0)
[2022-05-12 09:30] LABS: ALBUMIN 2.6 GM/DL (3.2-5.2); BILIRUBIN,TOTAL 0.2 MG/DL (0.2-1.0); CALCIUM LEVEL 7.8 MG/DL (8.5-10.1); CREATININE FOR GFR 2.23 MG/DL (0.55-1.30); GLOMERULAR FILTRATION RATE 24.6 (>51); POTASSIUM SERUM 4.9 MEQ/L (3.5-5.1); TOTAL PROTEIN 5.9 GM/DL (6.4-8.2)
[2022-05-12] MEDS: LR 1,000 ML IV SCH ×2 (12:10→22:42)
[2022-05-12] MEDS: ACETAMINOPHEN TAB 650MG DOSE (2X325MG) PO PRN ×2 (14:50→22:56)
[2022-05-12] MEDS: traMADol 50 MG TAB PO PRN (18:25)
[2022-05-12] MEDS ORDERED: LEVEMIR (INSULIN DETEMIR) 1 UNITS/0.01ML SC SCH ×2 (21:00)
[2022-05-13] VITALS (20 sets, daily range): BP systolic 145–197; BP diastolic 66–118; O2SAT 93–96
[2022-05-13] MEDS: traMADol 50 MG TAB PO PRN ×3 (05:45→23:13)
[2022-05-13 06:01] LABS: HEMATOCRIT 32.1 % (36.0-47.0); HEMOGLOBIN 9.7 g/dl (12.0-15.5); MEAN CORPUSCULAR HEMOGLOBIN 28.4 pg (27.0-33.0); MEAN CORPUSCULAR HGB CONC 30.2 g/dl (32.0-36.5); MEAN CORPUSCULAR VOLUME 94.1 fl (80.0-96.0); PLATELET COUNT, AUTOMATED 248 10^3/uL (150-450); RED BLOOD COUNT 3.41 10^6/uL (4.00-5.40); WHITE BLOOD COUNT 6.9 10^3/uL (4.0-10.0)
[2022-05-13 06:43] LABS: CALCIUM LEVEL 8.2 MG/DL (8.5-10.1); CREATININE FOR GFR 1.42 MG/DL (0.55-1.30); GLOMERULAR FILTRATION RATE 41.4 (>51); POTASSIUM SERUM 4.4 MEQ/L (3.5-5.1)
[2022-05-13] MEDS: NYSTATIN 500,000 U/5 ML SUSP UDC SS SCH ×4 (08:52→21:00)
[2022-05-13] MEDS: PANTOPRAZOLE 40MG VIAL IV SCH (08:52)
[2022-05-13] MEDS: ENOXAPARIN 40MG/0.4ML SYRINGE (J1650 PER 10MG) SC SCH (08:53)
[2022-05-13] MEDS: INSULIN LISPRO (NovoLOG) PER UNIT SC SCH ×4 (08:53→21:00)
[2022-05-13] MEDS: LR 1,000 ML IV SCH (09:02)
[2022-05-13] MEDS: ACETAMINOPHEN TAB 650MG DOSE (2X325MG) PO PRN ×3 (09:03→23:13)
[2022-05-13] MEDS: NYSTATIN 100,000 UNITS/GM TOPICAL PWD 15 GM TOP SCH (18:55)
[2022-05-13] MEDS: LEVEMIR (INSULIN DETEMIR) 1 UNITS/0.01ML SC SCH (21:19)
[2022-05-13] MEDS ORDERED: amLODIPine 5 MG TAB PO ONE (21:30)
[2022-05-13] MEDS ORDERED: LABETALOL 100MG/20ML VIAL IV PRN (21:50)
[2022-05-14] VITALS (9 sets, daily range): BP systolic 141–185; BP diastolic 71–100
[2022-05-14] MEDS ORDERED: amLODIPine 5 MG TAB PO ONE (01:00)
[2022-05-14 05:12] LABS: HEMATOCRIT 30.5 % (36.0-47.0); HEMOGLOBIN 9.4 g/dl (12.0-15.5); MEAN CORPUSCULAR HEMOGLOBIN 28.8 pg (27.0-33.0); MEAN CORPUSCULAR HGB CONC 30.8 g/dl (32.0-36.5); MEAN CORPUSCULAR VOLUME 93.6 fl (80.0-96.0); PLATELET COUNT, AUTOMATED 257 10^3/uL (150-450); RED BLOOD COUNT 3.26 10^6/uL (4.00-5.40); WHITE BLOOD COUNT 8.7 10^3/uL (4.0-10.0)
[2022-05-14] MEDS: ACETAMINOPHEN TAB 650MG DOSE (2X325MG) PO PRN ×3 (06:09→21:51)
[2022-05-14 07:10] LABS: CALCIUM LEVEL 8.7 MG/DL (8.5-10.1); CREATININE FOR GFR 1.07 MG/DL (0.55-1.30); GLOMERULAR FILTRATION RATE 57.3 (>51); POTASSIUM SERUM 4.7 MEQ/L (3.5-5.1)
[2022-05-14] MEDS ORDERED: NIFEdipine 30 MG XL TAB PO SCH (09:00)
[2022-05-14] MEDS: INSULIN LISPRO (NovoLOG) PER UNIT SC SCH ×4 (09:23→21:46)
[2022-05-14] MEDS: ASPIRIN 81MG ENTERIC TABLET PO SCH (09:24)
[2022-05-14] MEDS: ROSUVASTATIN 10 MG TAB (CRESTOR) PO SCH (09:24)
[2022-05-14] MEDS: PANTOPRAZOLE 40MG VIAL IV SCH (09:25)
[2022-05-14] MEDS: NYSTATIN 500,000 U/5 ML SUSP UDC SS SCH ×4 (09:25→21:44)
[2022-05-14] MEDS: ENOXAPARIN 40MG/0.4ML SYRINGE (J1650 PER 10MG) SC SCH (09:29)
[2022-05-14] MEDS: NYSTATIN 100,000 UNITS/GM TOPICAL PWD 15 GM TOP SCH ×2 (09:29→21:45)
[2022-05-14] MEDS ORDERED: NIFEdipine 30 MG XL TAB PO ONE (17:45)
[2022-05-14] MEDS: LEVEMIR (INSULIN DETEMIR) 1 UNITS/0.01ML SC SCH (21:46)
[2022-05-15 06:00] VITALS: BP 159/88
[2022-05-15 06:39] LABS: HEMATOCRIT 33.9 % (36.0-47.0); HEMOGLOBIN 10.5 g/dl (12.0-15.5); MEAN CORPUSCULAR HEMOGLOBIN 28.7 pg (27.0-33.0); MEAN CORPUSCULAR VOLUME 92.6 fl (80.0-96.0); PLATELET COUNT, AUTOMATED 210 10^3/uL (150-450); RED BLOOD COUNT 3.66 10^6/uL (4.00-5.40); WHITE BLOOD COUNT 8.6 10^3/uL (4.0-10.0)
[2022-05-15] MEDS ORDERED: PANTOPRAZOLE 40MG TAB (PROTONIX) PO SCH (09:00)
[2022-05-15] MEDS ORDERED: lisinopriL 40MG TAB PO SCH (09:00)
[2022-05-15] MEDS ORDERED: NIFEdipine 30 MG XL TAB PO SCH (09:00)
[2022-05-15] MEDS: ACETAMINOPHEN TAB 650MG DOSE (2X325MG) PO PRN (10:13)
[2022-05-15 10:15] VITALS: BP 156/87
[2022-05-15] MEDS: ROSUVASTATIN 10 MG TAB (CRESTOR) PO SCH (10:15)
[2022-05-15] MEDS: ASPIRIN 81MG ENTERIC TABLET PO SCH (10:15)
[2022-05-15] MEDS: NYSTATIN 500,000 U/5 ML SUSP UDC SS SCH (10:16)
[2022-05-15] MEDS: ENOXAPARIN 40MG/0.4ML SYRINGE (J1650 PER 10MG) SC SCH (10:16)
[2022-05-15] MEDS: INSULIN LISPRO (NovoLOG) PER UNIT SC SCH ×2 (10:17→12:04)
[2022-05-15] MEDS: NYSTATIN 100,000 UNITS/GM TOPICAL PWD 15 GM TOP SCH (10:17)
[2022-05-15] MEDS ORDERED: LISI40TA4 PO (11:38)
[2022-05-15] MEDS ORDERED: NIFE1TAB51 PO (11:38)
[2022-05-15] MEDS ORDERED: HYDR-3490 PO (11:38)
[2022-05-15] MEDS ORDERED: LEVEMIR (INSULIN DETEMIR) 1 UNITS/0.01ML SC ONE (11:45)
== END 2022-05-15 13:05 | disposition home or self-care (01) | DRG 353 ==
LOC: M ED 07:43 → M ED INP 21:05 → ENRESERV 22:25 → M ICU 23:52 → EDBEDREQDT 05-11 01:00 → M PCU 05-11 22:30 → M MSPAV 05-14 20:45
PROVIDERS: ADMIT Internal Medicine; ATTEND Internal Medicine
PROC: 0DQU4ZZ Repair Omentum, Percutaneous Endoscopic Approach (ICD-10-PCS; 2022-05-11)
PROC: 8E0W4CZ Robotic Assisted Procedure of Trunk Region, Percutaneous Endoscopic Approach (ICD-10-PCS; 2022-05-11)
PROC: 0WQF4ZZ Repair Abdominal Wall, Percutaneous Endoscopic Approach (ICD-10-PCS; principal; 2022-05-11 15:00)
DX: K42.0 Umbilical hernia with obstruction, without gangrene (principal); E11.00 Type 2 diabetes mellitus with hyperosmolarity without nonketotic hyperglycemic-hyperosmolar coma (NKHHC); Z68.42 Body mass index [BMI] 45.0-49.9, adult; N17.9 Acute kidney failure, unspecified; B37.0 Candidal stomatitis; K91.71 Accidental puncture and laceration of a digestive system organ or structure during a digestive system procedure; E78.00 Pure hypercholesterolemia, unspecified; E11.22 Type 2 diabetes mellitus with diabetic chronic kidney disease; I12.9 Hypertensive chronic kidney disease with stage 1 through stage 4 chronic kidney disease, or unspecified chronic kidney disease; E11.65 Type 2 diabetes mellitus with hyperglycemia; N18.30 Chronic kidney disease, stage 3 unspecified; E66.01 Morbid (severe) obesity due to excess calories; Z90.49 Acquired absence of other specified parts of digestive tract; Z79.82 Long term (current) use of aspirin; Z79.4 Long term (current) use of insulin; Z79.899 Other long term (current) drug therapy

== ENCOUNTER 2022-05-16 11:26 | Emergency (ER) | payer OTHER ==
[~2022-05-16] VITALS: Ht 170.2 cm; Wt 145.3 kg
[~2022-05-16 11:26] MED LIST changes: +DULA3PEN SQ; +GABA-282 PO; +HYDR-3490 PO; +LISI30TA4 PO; +LISI40TA4 PO; +MAGN500T12 PO; +NIFE1TAB51 PO; +NYST10006 TOP; +OLOP5DRO16 OU; +TRAM37.53 PO
[2022-05-16 15:28] VITALS: BP 142/72
== END 2022-05-16 15:30 | disposition home or self-care (01) ==
LOC: M ED 11:26
DX: S30.821A Blister (nonthermal) of abdominal wall, initial encounter (principal); E78.5 Hyperlipidemia, unspecified; E11.9 Type 2 diabetes mellitus without complications; I10 Essential (primary) hypertension; Z79.4 Long term (current) use of insulin; Z79.82 Long term (current) use of aspirin; Z79.84 Long term (current) use of oral hypoglycemic drugs; Z79.899 Other long term (current) drug therapy; N18.4 Chronic kidney disease, stage 4 (severe); K42.9 Umbilical hernia without obstruction or gangrene; Z86.16 Personal history of COVID-19

== ENCOUNTER → 2022-06-02 | Outpatient (CLI) | payer OTHER ==
[2022-06-02 08:48] LABS: ALBUMIN 3.5 GM/DL (3.2-5.2); BILIRUBIN,TOTAL 0.3 MG/DL (0.2-1.0); CALCIUM LEVEL 9.9 MG/DL (8.5-10.1); CHOLESTEROL RISK RATIO 3.139 (<5); CREATININE FOR GFR 1.26 MG/DL (0.55-1.30); GLOMERULAR FILTRATION RATE 47.5 (>51); POTASSIUM SERUM 4.5 MEQ/L (3.5-5.1); TOTAL PROTEIN 7.2 GM/DL (6.4-8.2)
[2022-06-02 09:01] LABS: HEMOGLOBIN A1c 7.7 %
[2022-06-02 09:23] LABS: MAU/CREAT RATIO 1383.6 MCG/MG (0.0-30.0)
== END ==
LOC: M LAB 07:35
PROVIDERS: ATTEND Nurse Practitioner Family
DX: E11.9 Type 2 diabetes mellitus without complications (principal)

== ENCOUNTER → 2022-11-26 | Outpatient (CLI) | payer OTHER ==
[~2022-11-26] MED LIST changes: -GOOD81CH2 PO; +RA A81CH3 PO
[2022-11-26 10:07] LABS: HEMOGLOBIN A1c 8.2 % (4.0-6.0)
== END ==
LOC: M LAB 07:39
PROVIDERS: ATTEND Nurse Practitioner Family
DX: E11.69 Type 2 diabetes mellitus with other specified complication (principal)

== ENCOUNTER → 2022-12-07 | Outpatient (REF) | payer OTHER ==
[2022-12-07 18:12] LABS: POTASSIUM SERUM 4.8 MMOL/L (3.5-5.1)
== END ==
LOC: M LAB REF 17:07
PROVIDERS: ATTEND Internal Medicine Nephrology
DX: N18.31 Chronic kidney disease, stage 3a (principal)

== ENCOUNTER → 2022-12-29 | Outpatient (CLI) | payer OTHER ==
[~2022-12-29] MED LIST changes: -OLOP5DRO16 OU; +OLOP5DRO17 OU
== END ==
LOC: M PLAIMG 10:01 → M PLALAB 10:01
PROVIDERS: ATTEND Nurse Practitioner Family
DX: R05.9 Cough, unspecified (principal)

== ENCOUNTER → 2023-02-26 | Outpatient (CLI) | payer OTHER ==
[2023-02-26 09:34] LABS: HEMOGLOBIN A1c 7.7 % (4.0-6.0)
== END ==
LOC: M LAB 07:34
PROVIDERS: ATTEND Nurse Practitioner Family
DX: E11.69 Type 2 diabetes mellitus with other specified complication (principal)

== ENCOUNTER → 2023-06-30 | Outpatient (CLI) | payer OTHER ==
[~2023-06-30] MED LIST changes: +ASPI-663 PO; -RA A81CH3 PO
[2023-06-30 09:15] LABS: CREATININE, URINE 29.4 MG/DL; MAU/CREAT RATIO 163.2 MCG/MG (0.0-30.0)
[2023-06-30 09:20] LABS: ALBUMIN 3.7 G/DL (3.2-5.2); BILIRUBIN,TOTAL 0.3 MG/DL (0.3-1.2); CALCIUM LEVEL 9.5 MG/DL (8.5-10.1); CHOLESTEROL RISK RATIO 4.13 (<5); CREATININE FOR GFR 1.44 MG/DL (0.55-1.30); GLOMERULAR FILTRATION RATE 40.5 (>51); HDL CHOLESTEROL 35.8 MG/DL (>40); LDL CHOLESTEROL 45.6 MG/DL (<100); NON-HDL-C 112.2 MG/DL; POTASSIUM SERUM 5.2 MMOL/L (3.5-5.1); TOTAL PROTEIN 6.8 G/DL (5.7-8.2)
[2023-06-30 09:38] LABS: HEMOGLOBIN A1c 7.3 % (4.0-6.0)
== END ==
LOC: M LAB 07:44
PROVIDERS: ATTEND Nurse Practitioner Family
DX: I10 Essential (primary) hypertension (principal)

== ENCOUNTER → 2023-10-08 | Outpatient (CLI) | payer OTHER | LOC: M RAD 12:18 | PROVIDERS: ATTEND Registered Nurse | DX: R05.1 Acute cough (principal) ==

== ENCOUNTER → 2023-11-02 | Outpatient (CLI) | payer OTHER ==
[2023-11-02 09:58] LABS: HEMOGLOBIN A1c 10.8 % (4.0-6.0)
== END ==
LOC: M LAB 07:31
PROVIDERS: ATTEND Nurse Practitioner Family
DX: E11.69 Type 2 diabetes mellitus with other specified complication (principal)

== ENCOUNTER → 2023-11-08 | Outpatient (CLI) | payer OTHER | LOC: M WHC 08:10 | PROVIDERS: ATTEND Nurse Practitioner Family | DX: Z12.31 Encounter for screening mammogram for malignant neoplasm of breast (principal) ==

== ENCOUNTER → 2024-01-06 | Outpatient (REF) | payer OTHER ==
[2024-01-06 13:17] LABS: MAU/CREAT RATIO 148.2 MCG/MG (0.0-30.0)
[2024-01-06 13:19] LABS: HEMOGLOBIN A1c 10.4 % (4.0-6.0)
[2024-01-06 13:29] LABS: THYROID STIMULATING HORMONE 1.884 uIU/ML (0.55-4.78)
[2024-01-06 13:31] LABS: TOTAL 25(OH) VITAMIN D 27.2 NG/ML (20.0-100.0)
[2024-01-06 13:35] LABS: ALBUMIN 3.8 G/DL (3.2-5.2); ALKALINE PHOSPHATASE 93 U/L (46-116); ALT/SGPT 48 U/L (7.0-40); AST/SGOT 38 U/L (<34); BILIRUBIN,TOTAL 0.3 MG/DL (0.3-1.2); BLOOD UREA NITROGEN 61 MG/DL (9-23); CALCIUM LEVEL 10.1 MG/DL (8.5-10.1); CARBON DIOXIDE LEVEL 26 MMOL/L (20-31); CHLORIDE LEVEL 101 MMOL/L (98-107); CHOLESTEROL LEVEL 162 MG/DL (<200); CHOLESTEROL RISK RATIO 5.07 (<5); CREATININE FOR GFR 1.51 MG/DL (0.55-1.30); GLOMERULAR FILTRATION RATE 38.4 (>51); GLUCOSE, FASTING 205 MG/DL (60-100); HDL CHOLESTEROL 31.9 MG/DL (>40); NON-HDL-C 130.1 MG/DL; POTASSIUM SERUM 5.8 MMOL/L (3.5-5.1); SODIUM LEVEL 138 MMOL/L (136-145); TOTAL PROTEIN 7.3 G/DL (5.7-8.2); TRIGLYCERIDES LEVEL 676 MG/DL (<150)
[2024-01-06 13:55] LABS: HIV 1&2 SCREEN NEGATIVE (NEGATIVE)
[2024-01-06 14:00] LABS: Trichomonas vaginalis (AMP) NOT DETECTED (NEGATIVE)
[2024-01-06 14:03] LABS: HEPATITIS C VIRUS ABY INDEX < 0.02 INDEX (<0.8)
[2024-01-06 14:24] LABS: GC DNA AMPLIFICATION NEGATIVE (NEGATIVE)
== END ==
LOC: M LAB REF 11:48
PROVIDERS: ATTEND Physician Assistant
DX: Z11.9 Encounter for screening for infectious and parasitic diseases, unspecified (principal); E11.21 Type 2 diabetes mellitus with diabetic nephropathy; E66.01 Morbid (severe) obesity due to excess calories; E78.5 Hyperlipidemia, unspecified

== ENCOUNTER → 2024-01-13 | Outpatient (REF) | payer OTHER | LOC: M SFHCPLAZ 10:58 | PROVIDERS: ATTEND Student in an Organized Health Care Education/Training Program | DX: Z76.89 Persons encountering health services in other specified circumstances (principal); Z13.220 Encounter for screening for lipoid disorders; E11.22 Type 2 diabetes mellitus with diabetic chronic kidney disease; N18.4 Chronic kidney disease, stage 4 (severe); I10 Essential (primary) hypertension; Z53.9 Procedure and treatment not carried out, unspecified reason ==

== ENCOUNTER → 2024-01-17 | Outpatient (CLI) | payer OTHER ==
[2024-01-17 10:22] LABS: BASO % 0.3 % (0.0-1.0); EOS # 0.6 10^3/uL (0.0-0.5); EOS % 9.6 % (0.0-3.0); HEMOGLOBIN 11.4 g/dl (12.0-15.5); LYMPH # 1.6 10^3/uL (1.5-5.0); LYMPH % 24.2 % (24.0-44.0); MEAN CORPUSCULAR HEMOGLOBIN 29.5 pg (27.0-33.0); MEAN CORPUSCULAR HGB CONC 30.8 g/dl (32.0-36.5); MEAN CORPUSCULAR VOLUME 95.9 fl (80.0-96.0); MONO # 0.4 10^3/uL (0.0-0.8); MONO % 5.7 % (2.0-8.0); NEUTROPHILS # 3.9 10^3/uL (1.5-8.5); PLATELET COUNT, AUTOMATED 253 10^3/uL (150-450); RED BLOOD COUNT 3.86 10^6/uL (4.00-5.40); WHITE BLOOD COUNT 6.5 10^3/uL (4.0-10.0)
[2024-01-17 10:33] LABS: ALBUMIN 3.3 G/DL (3.2-5.2); ALKALINE PHOSPHATASE 96 U/L (46-116); ALT/SGPT 43 U/L (7.0-40); AST/SGOT 27 U/L (<34); BILIRUBIN,TOTAL 0.3 MG/DL (0.3-1.2); BLOOD UREA NITROGEN 67 MG/DL (9-23); CALCIUM LEVEL 9.5 MG/DL (8.5-10.1); CARBON DIOXIDE LEVEL 24 MMOL/L (20-31); CHLORIDE LEVEL 102 MMOL/L (98-107); CHOLESTEROL LEVEL 160 MG/DL (<200); CHOLESTEROL RISK RATIO 4.98 (<5); CREATININE FOR GFR 1.65 MG/DL (0.55-1.30); GLOMERULAR FILTRATION RATE 34.6 (>51); GLUCOSE, FASTING 197 MG/DL (60-100); HDL CHOLESTEROL 32.1 MG/DL (>40); NON-HDL-C 127.9 MG/DL; POTASSIUM SERUM 4.7 MMOL/L (3.5-5.1); SODIUM LEVEL 136 MMOL/L (136-145); TOTAL PROTEIN 6.8 G/DL (5.7-8.2); TRIGLYCERIDES LEVEL 571 MG/DL (<150)
[2024-01-17 10:41] LABS: CREATININE, URINE 38.9 MG/DL; MAU/CREAT RATIO 53.9 MCG/MG (0.0-30.0)
[2024-01-17 11:10] LABS: HIV 1&2 SCREEN NEGATIVE (NEGATIVE)
[2024-01-17 11:19] LABS: HEPATITIS C VIRUS ABY INDEX < 0.02 INDEX (<0.8)
== END ==
LOC: M LAB 09:04
PROVIDERS: ATTEND Student in an Organized Health Care Education/Training Program
DX: Z76.89 Persons encountering health services in other specified circumstances (principal); Z13.220 Encounter for screening for lipoid disorders; E11.22 Type 2 diabetes mellitus with diabetic chronic kidney disease; N18.4 Chronic kidney disease, stage 4 (severe)

== ENCOUNTER → 2024-01-20 | Outpatient (REF) | payer OTHER | LOC: M SFHCPLAZ 12:07 | PROVIDERS: ATTEND Student in an Organized Health Care Education/Training Program | DX: D64.9 Anemia, unspecified (principal) ==

== ENCOUNTER → 2024-01-24 | Outpatient (CLI) | payer OTHER ==
[2024-01-24 09:35] LABS: HEMATOCRIT 35.9 % (36.0-47.0)
[2024-01-24 10:12] LABS: PERCENT SATURATION 15.2 % (13.2-45.0)
[2024-01-24 10:14] LABS: FERRITIN 44.4 NG/ML (7.3-270.7); FREE T4 1.22 NG/DL (0.89-1.76); THYROID STIMULATING HORMONE 2.154 uIU/ML (0.55-4.78)
== END ==
LOC: M LAB 08:09
PROVIDERS: ATTEND Student in an Organized Health Care Education/Training Program
DX: D64.9 Anemia, unspecified (principal)

== ENCOUNTER → 2024-02-01 | Outpatient (REF) | payer OTHER ==
[~2024-02-01] MED LIST changes: -ROSU40TA4 PO; +ROSU40TA63 PO
== END ==
LOC: M SFHCPLAZ 11:49
PROVIDERS: ATTEND Student in an Organized Health Care Education/Training Program
DX: D64.9 Anemia, unspecified (principal)

== ENCOUNTER → 2024-02-11 | Outpatient (CLI) | payer OTHER | LOC: M SLEEP HO 11:33 | PROVIDERS: ATTEND Student in an Organized Health Care Education/Training Program | DX: E66.01 Morbid (severe) obesity due to excess calories (principal) ==

== ENCOUNTER → 2024-05-09 | Outpatient (CLI) | payer OTHER ==
[~2024-05-09] MED LIST changes: +TRAM1TAB42 PO; -TRAM37.53 PO
[2024-05-09 09:06] LABS: BASO # 0.1 10^3/uL (0.0-0.2); BASO % 0.6 % (0.0-1.0); EOS # 0.6 10^3/uL (0.0-0.5); EOS % 5.9 % (0.0-3.0); HEMATOCRIT 37.1 % (36.0-47.0); HEMOGLOBIN 11.9 g/dl (12.0-15.5); LYMPH # 1.4 10^3/uL (1.5-5.0); LYMPH % 13.9 % (24.0-44.0); MEAN CORPUSCULAR HEMOGLOBIN 30.1 pg (27.0-33.0); MEAN CORPUSCULAR HGB CONC 32.1 g/dl (32.0-36.5); MEAN CORPUSCULAR VOLUME 93.9 fl (80.0-96.0); MONO # 0.5 10^3/uL (0.0-0.8); MONO % 5.4 % (2.0-8.0); NEUTROPHILS # 7.3 10^3/uL (1.5-8.5); NEUTROPHILS % 73.6 % (36.0-66.0); PLATELET COUNT, AUTOMATED 275 10^3/uL (150-450); RED BLOOD COUNT 3.95 10^6/uL (4.00-5.40); WHITE BLOOD COUNT 9.9 10^3/uL (4.0-10.0)
[2024-05-09 09:24] LABS: HEMOGLOBIN A1c 9.2 % (4.0-6.0)
[2024-05-09 09:32] LABS: CREATININE, URINE 47.2 MG/DL; MAU/CREAT RATIO 27.5 MCG/MG (0.0-30.0)
[2024-05-09 09:33] LABS: ALBUMIN 3.9 G/DL (3.2-5.2); ALKALINE PHOSPHATASE 78 U/L (46-116); ALT/SGPT 39 U/L (7.0-40); AST/SGOT 25 U/L (<34); BILIRUBIN,TOTAL 0.3 MG/DL (0.3-1.2); BLOOD UREA NITROGEN 63 MG/DL (9-23); CALCIUM LEVEL 9.9 MG/DL (8.5-10.1); CARBON DIOXIDE LEVEL 25 MMOL/L (20-31); CHLORIDE LEVEL 105 MMOL/L (98-107); CHOLESTEROL LEVEL 170 MG/DL (<200); CHOLESTEROL RISK RATIO 5.98 (<5); CREATININE FOR GFR 1.96 MG/DL (0.55-1.30); GLOMERULAR FILTRATION RATE 28.3 (>51); GLUCOSE, FASTING 152 MG/DL (60-100); HDL CHOLESTEROL 28.4 MG/DL (>40); NON-HDL-C 141.6 MG/DL; POTASSIUM SERUM 4.9 MMOL/L (3.5-5.1); SODIUM LEVEL 140 MMOL/L (136-145); TOTAL PROTEIN 7.3 G/DL (5.7-8.2); TRIGLYCERIDES LEVEL 558 MG/DL (<150)
== END ==
LOC: M LAB 08:13
PROVIDERS: ATTEND Student in an Organized Health Care Education/Training Program
DX: Z00.01 Encounter for general adult medical examination with abnormal findings (principal); I10 Essential (primary) hypertension; E55.9 Vitamin D deficiency, unspecified; E11.22 Type 2 diabetes mellitus with diabetic chronic kidney disease; E66.01 Morbid (severe) obesity due to excess calories

== ENCOUNTER → 2024-12-27 | Outpatient (CLI) | payer OTHER ==
[~2024-12-27] MED LIST changes: +GABA-1172 PO; -GABA-282 PO; -ROSU40TA63 PO; +ROSU40TA81 PO
[2024-12-27 14:31] LABS: BASO # 0.1 10^3/uL (0.0-0.2); BASO % 0.7 % (0.0-1.0); EOS # 0.8 10^3/uL (0.0-0.5); HEMATOCRIT 35.9 % (36.0-47.0); HEMOGLOBIN 11.2 g/dl (12.0-15.5); LYMPH # 2.5 10^3/uL (1.5-5.0); LYMPH % 27.1 % (24.0-44.0); MEAN CORPUSCULAR HEMOGLOBIN 29.8 pg (27.0-33.0); MEAN CORPUSCULAR HGB CONC 31.2 g/dl (32.0-36.5); MEAN CORPUSCULAR VOLUME 95.5 fl (80.0-96.0); MONO # 0.7 10^3/uL (0.0-0.8); MONO % 7.1 % (2.0-8.0); NEUTROPHILS # 5.1 10^3/uL (1.5-8.5); NEUTROPHILS % 55.7 % (36.0-66.0); PLATELET COUNT, AUTOMATED 304 10^3/uL (150-450); RED BLOOD COUNT 3.76 10^6/uL (4.00-5.40); WHITE BLOOD COUNT 9.2 10^3/uL (4.0-10.0)
[2024-12-27 14:37] LABS: ALBUMIN 4.1 G/DL (3.2-5.2); ALKALINE PHOSPHATASE 80 U/L (35-104); ALT/SGPT 70 U/L (7.0-40); AST/SGOT 51 U/L (<34); BILIRUBIN,TOTAL 0.2 MG/DL (0.3-1.2); BLOOD UREA NITROGEN 65 MG/DL (9-23); CALCIUM LEVEL 10.3 MG/DL (8.5-10.1); CARBON DIOXIDE LEVEL 27 MMOL/L (20-31); CHLORIDE LEVEL 106 MMOL/L (98-107); CHOLESTEROL LEVEL 156 MG/DL (<200); CHOLESTEROL RISK RATIO 5.13 (<5); CREATININE FOR GFR 1.96 MG/DL (0.55-1.30); GLOMERULAR FILTRATION RATE 28.3 (>51); GLUCOSE, FASTING 48 MG/DL (60-100); HDL CHOLESTEROL 30.4 MG/DL (>40); NON-HDL-C 125.6 MG/DL; POTASSIUM SERUM 4.9 MMOL/L (3.5-5.1); SODIUM LEVEL 142 MMOL/L (136-145); TOTAL PROTEIN 7.6 G/DL (5.7-8.2); TRIGLYCERIDES LEVEL 417 MG/DL (<150)
[2024-12-27 15:03] LABS: CREATININE, URINE 26.5 MG/DL; MAU/CREAT RATIO 26.4 MCG/MG (0.0-30.0)
[2024-12-27 15:26] LABS: HEMOGLOBIN A1c 6.3 % (4.0-6.0)
== END ==
LOC: M PLALAB 09:13
PROVIDERS: ATTEND Student in an Organized Health Care Education/Training Program
DX: E11.22 Type 2 diabetes mellitus with diabetic chronic kidney disease (principal); N18.4 Chronic kidney disease, stage 4 (severe); I12.9 Hypertensive chronic kidney disease with stage 1 through stage 4 chronic kidney disease, or unspecified chronic kidney disease

== ENCOUNTER → 2025-03-28 | Outpatient (REF) | payer OTHER ==
[~2025-03-28] MED LIST changes: +LISI40TA10 PO; -LISI40TA4 PO
== END ==
LOC: M SFHCPLAZ 11:10
PROVIDERS: ATTEND Student in an Organized Health Care Education/Training Program
DX: E11.22 Type 2 diabetes mellitus with diabetic chronic kidney disease (principal); E78.1 Pure hyperglyceridemia; E55.9 Vitamin D deficiency, unspecified; Z53.9 Procedure and treatment not carried out, unspecified reason

== ENCOUNTER → 2025-06-08 | Outpatient (REF) | payer OTHER ==
[~2025-06-08] MED LIST changes: +HYDR12.510 PO; -HYDR12CA PO
[2025-06-08 19:39] LABS: IRON (FE) 60.0 UG/DL (50-170); PERCENT SATURATION 14.3 % (13.2-45.0)
== END ==
LOC: M LAB REF 16:58
PROVIDERS: ATTEND Internal Medicine Nephrology
DX: E61.1 Iron deficiency (principal)

== ENCOUNTER 2025-06-20 10:42 | Outpatient (CLI) | payer OTHER ==
[~2025-06-20] VITALS: Ht 170.2 cm; Wt 147.0 kg
[~2025-06-20 10:42] MED LIST changes: +ALBUTEROL SULFATE 2.5 MG/0.5 ML INH CONCENTRATE NEB SOLN INH PRN; +EPINEPHrine INJ 1 MG/ML 1ML AMP IM PRN; +NS (Normal Saline) 0.9% 1,000 ML IV SCH; +diphenhydrAMINE 50 MG/ML VIAL IV PRN
[2025-06-20 11:53] VITALS: BP 135/66; O2SAT 96
[2025-06-20] MEDS: IRON SUCROSE 300 MG in NS 250 ML IV ONE (11:57)
[2025-06-20 13:36] VITALS: BP 130/60; O2SAT 95
== END 2025-06-20 13:45 ==
LOC: M INFU 10:42
PROVIDERS: ATTEND Internal Medicine Nephrology
DX: E61.1 Iron deficiency (principal); N18.31 Chronic kidney disease, stage 3a
CPT/HCPCS: 96365; 96366; J1756

== ENCOUNTER 2025-06-27 12:38 | Outpatient (CLI) | payer OTHER ==
[~2025-06-27] VITALS: Ht 170.2 cm; Wt 147.7 kg
[~2025-06-27 12:38] MED LIST changes: -NS (Normal Saline) 0.9% 1,000 ML IV SCH
[2025-06-27 13:00] VITALS: BP 111/55; O2SAT 98
[2025-06-27] MEDS: IRON SUCROSE 300 MG in NS 250 ML OVER 90 MIN. IV ONE (13:09)
[2025-06-27 14:53] VITALS: BP 122/62; O2SAT 96
== END 2025-06-27 14:54 ==
LOC: M INFU 12:38
PROVIDERS: ATTEND Internal Medicine Nephrology
DX: N18.31 Chronic kidney disease, stage 3a (principal); D63.1 Anemia in chronic kidney disease; E61.1 Iron deficiency
CPT/HCPCS: 96365; 96366; J1756

== ENCOUNTER 2025-07-04 13:11 | Outpatient (CLI) | payer OTHER ==
[~2025-07-04] VITALS: Ht 170.2 cm; Wt 148.0 kg
[~2025-07-04 13:11] MED LIST changes: +NS (Normal Saline) 0.9% 1,000 ML IV SCH
[2025-07-04 13:38] VITALS: BP 112/56; O2SAT 97
[2025-07-04] MEDS: IRON SUCROSE 300 MG in NS 250 ML OVER 90 MIN. IV ONE (13:51)
[2025-07-04 15:27] VITALS: BP 106/68; O2SAT 95
== END 2025-07-04 15:35 ==
LOC: M INFU 13:11
PROVIDERS: ATTEND Internal Medicine Nephrology
DX: E61.1 Iron deficiency (principal)
CPT/HCPCS: 96365; J1756

== ENCOUNTER → 2025-08-09 | Outpatient (CLI) | payer OTHER ==
[~2025-08-09] MED LIST changes: -ALBUTEROL SULFATE 2.5 MG/0.5 ML INH CONCENTRATE NEB SOLN INH PRN; -EPINEPHrine INJ 1 MG/ML 1ML AMP IM PRN; -NS (Normal Saline) 0.9% 1,000 ML IV SCH; -diphenhydrAMINE 50 MG/ML VIAL IV PRN
[2025-08-09 11:05] LABS: CREATININE, URINE 56.8 MG/DL
[2025-08-09 11:06] LABS: MALB URINE SIEMENS < 3.0 MG/L
[2025-08-09 11:07] LABS: ALT/SGPT 63.0 U/L (7.0-40); AST/SGOT 45.0 U/L (<34); CALCIUM LEVEL 9.6 MG/DL (8.5-10.1); CARBON DIOXIDE LEVEL 23.0 MMOL/L (20-31); CHLORIDE LEVEL 105.0 MMOL/L (98-107); CHOLESTEROL LEVEL 165.0 MG/DL (<200); CHOLESTEROL RISK RATIO 4.48 (<5); CREATININE FOR GFR 2.23 MG/DL (0.55-1.30); GLOMERULAR FILTRATION RATE 25.4 (>51); LDL CHOLESTEROL 68.4 MG/DL (<100); MAGNESIUM LEVEL 2.0 MG/DL (1.8-2.4); NON-HDL-C 128.2 MG/DL; POTASSIUM SERUM 5.0 MMOL/L (3.5-5.1); SODIUM LEVEL 141.0 MMOL/L (136-145); TRIGLYCERIDES LEVEL 299.0 MG/DL (<150)
[2025-08-09 11:28] LABS: ESTIMATED AVERAGE GLUCOSE 103.0 MG/DL (60-110)
== END ==
LOC: M LAB 09:18
PROVIDERS: ATTEND Student in an Organized Health Care Education/Training Program
DX: E78.2 Mixed hyperlipidemia (principal); N18.4 Chronic kidney disease, stage 4 (severe); E11.22 Type 2 diabetes mellitus with diabetic chronic kidney disease